=== PATIENT | female | born 1985 | race Caucasian/White ===

== ENCOUNTER 2019-08-28 22:22 | Emergency (ER) | payer SELFPAY ==
[2019-08-28 22:31] VITALS: BP 123/75; PULSE 107; RESP 16; TEMP 38.2; O2SAT 99
[2019-08-28 23:38] VITALS: TEMP 37.7; O2SAT 98
--- NOTE | 2019-08-28 23:54 | ED.URI ---
HPI - URI/Sore Throat General Chief Complaint: Upper Respiratory Infection Stated Complaint: vomiting, fever, cough Time Seen by Provider: 08/28/19 23:54 Source: patient and RN notes reviewed Mode of arrival: ambulatory Limitations: no limitations History of Present Illness HPI Narrative: Pt is a 34 y/o female who presents to the ED with c/o flu-like symptoms starting yesterday. She notes that she has had a fever, generalized weakness, dizziness, headache, nausea, vomiting, diarrhea, body aches, and cough since yesterday. Pt states that her children are also currently sick with similar symptoms. MD elicited complaint: other (Flu-like symptoms) Onset (ago): day(s) (1) Context: sick contacts Associated symptoms: fever, headache, cough, nausea, vomiting, diarrhea and other (body aches; generalized weakness; dizziness) Related Data Allergies Allergy/AdvReac Type Severity Reaction Status Date / Time Penicillins Allergy Unknown Verified 03/08/18 10:16 Review of Systems Review of Systems: All systems reviewed & are unremarkable except as noted in HPI and below Constitutional: Constitutional: Reports body ache(s), Reports fever(s), Reports headache(s) and Reports weakness (generalized) Respiratory: Respiratory: Reports cough Gastrointestinal: Gastrointestinal: Reports diarrhea, Reports nausea and Reports vomiting Neurologic: Reports dizziness PMFSH Past Medical History Medical History Asthma depression Surgical History Surgical History Hx of appendectomy Social History Social History Smoking status: Former smoker Alcohol intake: never Exam Narrative: Exam Narrative: General appearance: Well-developed, well-nourished Skin: Normal color Head: Normocephalic, nontraumatic Eyes: Clear conjunctiva ENT: Oropharynx erythema l, ears normal, rhinorrhea Neck: Supple, nontender Chest and respiratory: Airway patent, no respiratory distress, no accessory muscle use Heart: Regular rate/rhythm Abdomen: Soft, nontender, no organomegaly, quiet bowel sounds Vascular: Normal peripheral pulses, normal capillary refill. Musculoskeletal: Normal range of motion, nontender back Neurologic: Alert and oriented ?3, TAX INTERN is normal as tested, no gross motor deficit Course Course Emergency Course: Unchanged Vital Signs Vital signs: Vital Signs Temperature 38.2 C H 08/28/19 22:31 Pulse Rate 107 H 08/28/19 22:31 Respiratory Rate 16 08/28/19 22:31 Blood Pressure 123/75 08/28/19 22:31 Pulse Oximetry 99 08/28/19 22:31 Temperature 38.2 C H 08/28/19 22:31 Pulse Rate 107 H 08/28/19 22:31 Respiratory Rate 16 08/28/19 22:31 Blood Pressure 123/75 08/28/19 22:31 Pulse Oximetry 99 08/28/19 22:31 MDM - URI/Sore Throat MDM Narrative Medical decision making narrative: Patient influenza test is negative, patient came with 3 of her children and all of them positive for influenza A. I believe the swab test was not accurate. Patient will be treated for influenza. Tamiflu started. Differential Diagnosis Differential diagnosis: Likely upper respiratory infection, viral infection and influenza Lab Data Labs: Influenza A Screen Negative Reference Range: Negative Influenza B Screen Negative Reference Range: Negative Critical Care Time Critical Care Time Critical Care Time: No Discharge Plan Discharge Clinical Impression: Viral infection Patient Disposition: Home, Self-Care Condition: Stable Instructions: Viral Syndrome (ED
[2019-08-29] MEDS: OSELTAMIVIR PHOSPHATE 75 MG CAP PO (00:42)
[2019-08-29] MEDS: ACETAMINOPHEN 325 MG TABLET 650 MG PO (00:42)
[2019-08-29] MEDS: IBUPROFEN 600 MG TABLET PO (00:42)
[2019-08-29 01:12] VITALS: TEMP 37.8
[2019-08-29 01:30] VITALS: BP 124/76; PULSE 98; RESP 18; TEMP 37.7; O2SAT 100
== END 2019-08-29 01:33 | disposition home or self-care (01) ==
PROVIDERS: Emergency Provider Emergency Medicine
DX: B34.9 Viral infection, unspecified (principal); J45.909 Unspecified asthma, uncomplicated
CPT/HCPCS: 87804; 99283; A9270

== ENCOUNTER 2020-04-08 13:38 | Inpatient (IN) | payer MEDICAID, SELFPAY ==
--- NOTE | ~2020-04-08 | CT_ITS ---
EXAMINATION: CT abdomen pelvis w con DATE: 04/10/2020 08:11 INDICATION: Infection. Status post recent lap resection. TECHNIQUE: Computed tomography (CT) of the abdomen and pelvis was performed with 100 cc Omnipaque 350 intravenous contrast. The dose-length product was 1151.19 mGy-cm. Automated exposure control and ite rative reconstruction technique were employed. COMPARISON: None. FINDINGS: Heart size normal. No significant pleural or pericardial effusion. Status post cholecystect kavya. There is diffuse soft tissue swelling and edema. There is fluid collection along the left flank which appears to be encapsulated measuring 7.3 x 5.9 x 2.5 cm. There is a left adnexal cyst measuring 2 cm, likely ovarian. Status post cholecystectomy. The liver, spleen, pancreas, adrenal glands and kidneys are unremarkable . There are retroperitoneal lymph nodes which are likely reactive in the upper abdomen. No free air. No acute osseous abnormality. IMPRESSION: 1. Extensive subcutaneous and soft tissue edema surrounding the abdomen and pelvis with possible absc ess of the left lateral abdominal wall, images 72-90. Alternatively, this fluid could represent posts urgical seroma/hematoma. Reviewed, dictated and finalized at location B. IMPRESSION: 1. Extensive subcutaneous and soft tissue edema surrounding the abdomen and pel vis with possible abscess of the left lateral abdominal wall, images 72-90. Alt ernatively, this fluid could represent postsurgical seroma/hematoma.
--- NOTE | ~2020-04-08 | CT_ITS ---
EXAMINATION: CT brain wo con DATE: 04/08/2020 20:35 INDICATION: Headache. TECHNIQUE: Computed tomography (CT) of the head was performed without intravenous contrast. The mA wa s adjusted according to patient size. Iterative reconstruction technique was employed. The dose-lengt h product was 605.33 mGy-cm. COMPARISON: None FINDINGS: There is no intracranial hemorrhage, acute infarction, or abnormal intracranial mass lesion . The ventricles are normal in size. The paranasal sinuses are clear. The mastoid air cells are kwabena l. IMPRESSION: 1. Normal brain. Reviewed, dictated and finalized at location A. IMPRESSION: 1. Normal brain.
--- NOTE | ~2020-04-08 | XR_ITS ---
EXAMINATION: XR chest 2V EXAM DATE: 04/08/2020 14:53 INDICATION: Fever and headache. TECHNIQUE: Frontal and lateral projections of the chest obtained and reviewed. There is no prior w[place] dy for comparison. FINDINGS: The lungs are clear. There are no pleural effusions. The cardiomediastinal silhouette is within normal limits. There is no pneumothorax suspected. The bones and soft tissues are unremarkab le. There are cholecystectomy clips. IMPRESSION: No acute cardiopulmonary findings. Reviewed, dictated and finalized at location A.
--- NOTE | ~2020-04-08 | CT_ITS ---
EXAMINATION: 1. CT LE RT w con 2. CT LE LT w con DATE: 04/08/2020 20:35 INDICATION: Bilateral thigh pain after liposuction. TECHNIQUE: Computed tomography (CT) of the right thigh and left thigh was performed with 100 mL Omnip aque 350 intravenous contrast. Automated exposure control and iterative reconstruction technique were employed. The dose-length product was 964.80 mGy-cm. COMPARISON: None FINDINGS: RIGHT THIGH CT: There is subcutaneous fat stranding in the pelvis and right thigh. No abscess. There are no pathologically enlarged lymph nodes. The bones are unremarkable. LEFT THIGH CT: There is subcutaneous fat stranding in the pelvis and left thigh. No abscess. There ar e no pathologically enlarged lymph nodes. The bones are unremarkable. IMPRESSION: 1. Subcutaneous fat stranding in the pelvis and thighs, consistent with expected changes of liposucti on. No abscess. Reviewed, dictated and finalized at location A. IMPRESSION: 1. Subcutaneous fat stranding in the pelvis and thighs, consistent with expecte d changes of liposuction. No abscess.
[2020-04-08 14:00] VITALS: BP 129/89; PULSE 122; RESP 20; TEMP 37.5; O2SAT 100
[2020-04-08 14:13] LABS: Basophils Percent Auto 0.2 % (0.2-1.2); Eosinophils Absolute Auto 0.2 K/mm3 (0-0.3); Eosinophils Percent Auto 1.8 % (0-4.4); Hematocrit 23.8 % (37.0-47.0); Hemoglobin 7.6 g/dL (12.0-15.0); Immature Granulocyte Absolute 0.06 K/mm3 (0.00-0.031); Immature Granulocyte Percent A 0.5 % (0-0.5); Lymphocytes Absolute Auto 1.29 K/mm3 (0.9-3.2); Lymphocytes Percent Auto 10.6 % (18.3-44.2); Mean Corpuscular HGB Conc 31.9 g/dl (32-36); Mean Corpuscular Hemoglobin 31.9 pg (26-34); Monocytes Absolute Auto 0.5 K/mm3 (0.1-0.6); Monocytes Percent Auto 3.7 % (2.6-8.5); Neutrophils Absolute Auto 10.2 K/mm3 (1.3-6.7); Neutrophils Percent Auto 83.2 % (45.5-73.1); Platelet Count Result 233 k/mm3 (150-375); Red Blood Count 2.38 M/mm3 (4.2-5.4); Red Cell Distribution Width 17.4 % (11.5-14.5); White Blood Count 12.2 K/mm3 (4.5-10.0)
[2020-04-08 14:25] LABS: Alanine Aminotransferase 45 U/L (4-35); Albumin Level 3.1 g/dL (3.5-5.1); Alkaline Phosphatase 53 U/L (38-126); Anion Gap 5 mmol/L (8-16); Aspartate Amino Transferase 28 U/L (14-36); Bilirubin,Total 0.5 mg/dL (0.2-1.3); Blood Urea Nitrogen 5 mg/dL (7-17); Calcium 8.6 mg/dL (8.4-10.2); Carbon Dioxide 26 mmol/L (22-30); Chloride 104 mmol/L (98-107); Estimated CRCL calculation 110 ml/min; Estimated Glomerular Filt Rate > 60; Glucose 102 mg/dL (65-105); Potassium 3.8 mmol/L (3.4-5.0); Sodium 135 mmol/L (137-145)
[2020-04-08 14:33] LABS: Add Urine Microscopic? NO; Appearance Urine Clear (Clear); Bilirubin Urine Negative (Negative); Blood Urine Negative (Negative); Color Urine Straw (Yellow); Glucose Urine UA Negative (Negative); Ketones Urine Negative (Negative); Leukocyte Esterase Ur Negative LEU/UL (Negative); Nitrate Urine Negative (Negative); Protein Urine Negative (Negative); Specific Grav Ur 1.005 (1.001-1.035); Urobilinogen Urine Negative mg/dL (<2.0)
[2020-04-08 18:30] VITALS: BP 134/78; PULSE 98; RESP 18; TEMP 36.7; O2SAT 100
--- NOTE | 2020-04-08 18:39 | ED.GENADULT ---
HPI - General Adult General Chief complaint: Fever Stated complaint: headache, fever Time Seen by Provider: 04/08/20 18:17 Source: patient History of Present Illness HPI narrative: Patient is a 34 y/o female complaining of generalized headache, neck pain/stiffness and fever for approximately 2 days. She rates her pain as 8/10 and she describes her pain as a pressure in her head. She took Ibuprofen without relief. She has no nausea or vomiting. She has no cough or sore throat. Of note, she had liposuction of her thighs approximately 2 weeks ago in [place]. She still has some thigh pain. Related Data Allergies Allergy/AdvReac Type Severity Reaction Status Date / Time Penicillins Allergy Unknown Verified 03/08/18 10:16 Review of Systems Constitutional: Constitutional: Denies chills, Reports fever(s), Reports headache(s) and Denies weakness Eyes: Eyes: Denies blurry vision ENT: Reports headache(s) and Reports neck pain Cardiovascular: Cardiovascular: Denies chest pain and Denies dyspnea Respiratory: Respiratory: Denies cough and Denies dyspnea Gastrointestinal: Gastrointestinal: Denies abdominal pain, Denies diarrhea, Denies nausea and Denies vomiting Genitourinary: Genitourinary: Denies hematuria and Denies dysuria Musculoskeletal: Musculoskeletal: Denies back pain and Denies neck pain Neurologic: Reports headache(s) and Denies weakness PMF Past Medical History Medical History (Updated 04/09/20 @ 12:24 by Babs Cotter MD) Asthma depression Surgical History Surgical History (Updated 04/08/20 @ 22:38 by Jordin Jimenez MD) History of laparoscopic cholecystectomy Hx of appendectomy Social History Social History Smoking status: Never smoker Alcohol intake: never Substance use: never Substance use type: does not use Gender identity (if verbalized by the patient): Female Spiritual care concerns: No Exam Const: General: no acute distress and well developed Orientation/consciousness: oriented to person, oriented to place, oriented to time and patient oriented x3 HENMT: Head: normocephalic Ears: external ears normal General nose exam: Normal external nose present Eyes: General: appearance normal, both eyes and all related structures Conjunctivae: conjunctivae normal Neck: Neck: normal visual inspection and full ROM Chest: Chest palpation & inspection: normal inspection of the chest and no tenderness Resp: Effort & Inspection: normal respiratory effort Auscultation: clear to auscultation bilaterally Cardio: Rate: regular rate Rhythm: regular rhythm GI: GI Palp: No abdominal tenderness and Yes Soft to palpation Skin: General skin exam: normal color, turgor normal and erythema (both thigh) Wounds: wounds noted (groin, back wound clean and intact) Neuro: General: oriented to person, oriented to place, oriented to time and patient oriented x3 Cognition (Neuro): normal cognition Extrem: General: normal to inspection, full ROM and no pedal edema Psych: Appearance: grossly normal Mental Status: mental status grossly normal Affect: normal affect Course Consultations Consultation #1: Discussed with Dr. Jimenez, who agrees to admit. Date: 04/08/20 Time: 21:16 Vital Signs Vital signs: Vital Signs Temperature 37.5 C 04/08/20 14:00 Pulse Rate 122 H 04/08/20 14:00 Respiratory Rate 20 04/08/20 14:00 Blood Pressure 129/89 04/08/20 14:00 Pulse Oximetry 100 04/08/20 14:00 Temperature 36.9 C 04/09/20 06:00 Pulse Rate 93 04/09/20 06:00 Respiratory Rate 16 04/09/20 06:00 Blood Pressure 104/68 04/09/20 07:56 Pulse Oximetry 100 04/09/20 06:00 Procedures Lumbar Puncture Lumbar Puncture #1: Lumbar Puncture Date: 04/08/20 Lumbar Puncture Time: 19:50 Time Out Performed: Yes Patient Position: left lateral decubitus Skin Prep: Povidone-Iodine 1% Anestheti
[2020-04-08] MEDS: SODIUM CHLORIDE 0.9% IV 1,000 ML 999 ML IV CONT (19:03)
[2020-04-08 20:21] LABS: Glucose CSF 46 mg/dL (40-70); Total Protein CSF 32 mg/dL (12-60)
[2020-04-08 20:42] LABS: Appearance CSF Clear (Clear); CSF source CSF; Color CSF Colorless (Colorless); Lymphocytes CSF 62 % (40-80); Nucleated Cell CSF 3 /uL (0-5); Red Blood Cell CSF 3 (0-2)
[2020-04-08 20:43] LABS: Monocytes CSF 38 % (15-45)
[2020-04-08 21:27] LABS: Lactic Acid Reflex 0.6 mmol/L (0.7-2.1)
[2020-04-08] MEDS: SODIUM CHLORIDE 0.9% IV 1,000 ML 999 ML (21:37)
[2020-04-08] MEDS: KETOROLAC 15 MG/ML VIAL (*BKC) IV PUSH (21:38)
[2020-04-08] MEDS: diphenhydrAMINE HCl INJ 50 MG/ML VIAL 25 MG IV PUSH (21:38)
[2020-04-08] MEDS: METOCLOPRAMIDE HCL INJ 10 MG/2 ML VIAL IV PUSH (21:38)
[2020-04-08 21:45] VITALS: BP 117/62; PULSE 105; RESP 18; O2SAT 99
--- NOTE | 2020-04-08 22:27 | PM.IMHP ---
H&P: HPI History of Present Illness Date/Time: 04/08/20 22:27 Chief complaint: sepsis, headache Narrative: this is a pleasant 34-year-old female with known asthma who presented to the hospital with complaints of generalized headache, malaise, and intermittent fevers for the past 2 days. The patient was known to have undergone liposuction various parts of her body approximately 2 weeks ago in [place]. She had an abdominal drain placed for 9 days before it was removed. Tonight the patient was complaining of neck stiffness and proximal thigh tenderness bilaterally. The patient also reports that she has some small amount of clear drainage coming from wounds under both of her arms. She denies any cough, shortness of breath, sore throat, ear pain, chest pain, dysuria, abdominal pain, hematuria, diarrhea, lower extremity swelling, or rectal bleeding. The patient was found to be septic in the emergency room tonight and did undergo lumbar puncture which was unremarkable. The patient has been started on wide-spectrum antibiotics and blood cultures are pending. Review of Systems Review of Systems: All systems reviewed & are unremarkable except as noted in HPI and below PMFSH Past Medical History Medical History (Updated 04/09/20 @ 06:00 by Jordin Jimenez MD) Asthma depression Surgical History Surgical History (Updated 04/08/20 @ 22:38 by Jordin Jimenez MD) History of laparoscopic cholecystectomy Hx of appendectomy Social History Social History Smoking status: Never smoker Alcohol intake: never Substance use: never Substance use type: does not use Gender identity (if verbalized by the patient): Female Spiritual care concerns: No Meds Home Medications and Allergies Home Medications Medication Instructions Recorded Confirmed Type ipratropium bromide [Atrovent HFA] 2 puff INHALATION QID #12.9 gm 08/29/19 04/09/20 Rx ondansetron HCl [Zofran] 4 mg PO Q6H PRN #10 tablet 08/29/19 04/09/20 Rx oseltamivir [Tamiflu] 75 mg PO Q12H 5 Days #10 cap 08/29/19 04/09/20 Rx Allergies Allergy/AdvReac Type Severity Reaction Status Date / Time Penicillins Allergy Unknown Verified 03/08/18 10:16 Vital Signs Vital Signs - 24 hr 04/08/20 14:00 04/08/20 18:30 04/08/20 21:45 Temperature 37.5 C 36.7 C Pulse Rate 122 H 98 105 H Respiratory Rate 20 18 18 Blood Pressure 129/89 134/78 117/62 Pulse Oximetry 100 100 99 Exam Const: General: cooperative, no acute distress, alert and awake Nutritional Appearance: well nourished Orientation/consciousness: patient oriented x3 HENMT: Head: normal to inspection General nose exam: Normal external nose present Face and sinus: normal facial exam Mouth: Yes Normal oral and palatal mucosa present and Yes oropharynx normal Eyes: Pupils: Equal, round and reactive pupils present EOM: EOMs intact bilaterally Neck: Neck: supple and no JVD Thyroid: thyroid normal Lymphatic: lymphadenopathy not noted Resp: Effort & Inspection: normal respiratory effort Auscultation: clear to auscultation bilaterally Cardio: Rate: regular rate Rhythm: regular rhythm Heart sounds: no murmurs GI: Inspection: normal to inspection Auscultation: normal bowel sounds Skin: General skin exam: erythema (b/l proximal thighs++ ) Wounds: wounds noted (pelvic wound from drain+ ) Neuro: General: patient oriented x3 Cranial nerves: Yes CN's II-XII intact bilaterally and Yes Equal, round and reactive pupils present Speech: normal speech Motor exam (neuro): 5/5 motor strength present throughout Sensory Exam: normal sensation Extrem: General: normal to inspection and no edema Psych: Mental Status: mental status grossly normal Affect: normal affect H&P: Results Labs Labs: Short CBC 04/08/20 Range/Units 14:07 WBC 12.2 H (4.5-10.0) K/mm3 Hgb 7.6 L (12.0-15.0) g/dL Hct 23.8 L (37.0-47.0) % Plt
[2020-04-08 22:32] VITALS: BP 132/60; PULSE 68; RESP 14; TEMP 36.7; O2SAT 100
[2020-04-08 22:33] VITALS: BMI 30.7
--- NOTE | 2020-04-08 22:58 | ADMGEN ---
This patient, Shannan Hermosillo, was admitted to 2 Medical Room 241-01. Patient/family oriented to hospital policies and general routines including ID bracelet, bed and alarms, visiting hours, pain management, procedures, bathroom and other care routines, personal items, smoking policy, room service/diet, and visiting hours. Valuables list has been completed. Information on how to activate the Rapid Response Team has been discussed. Patient/Family are encouraged to report perceived risks to care and to ask questions if they do not understand what they are told or what they should do.
[2020-04-08] MEDS: ACETAMINOPHEN 325 MG TABLET 650 MG PO (23:17)
[2020-04-08] MEDS: SODIUM CHLORIDE 0.9% IV 1,000 ML 125 ML IV CONT (23:17)
[2020-04-09] VITALS (10 sets, daily range): BP systolic 98–126; BP diastolic 50–73; PULSE 70–102; RESP 14–16; TEMP 36.6–37.2; O2SAT 100
--- NOTE | 2020-04-09 | ECHO_ITS ---
Patient Info Name: Shannan Hermosillo Age: 34 years : 1985 Gender: Female Ht: 63 in Wt: 173 lbs BSA: 1.90 m2 HR: 90 bpm BP: 104 / 68 mmHg Heart Rhythm: Sinus Rhythm Technical Quality: Good Exam Date: 04/09/2020 2:23 PM Exam Location: [facility] Patient Status: Inpatient Admit Date: 04/08/2020 Staff Ordering Physician: Yi Appiah PA-C Dental Laboratory Technology Teacher: Raymond Vieira RDCS Attending Provider: Yi Appiah PA-C Referring Physician: Td CAMPOS; Exam Type: CA echo doppler color flow Study Info Indications R01.1 - Cardiac murmur, unspecified Complete two-dimensional, color flow and Doppler transthoracic echocardiogram is performed. Strain analysis performed. History/Risk Factors Sepsis w/ murmur. Summary 1. Complete two-dimensional, color flow and Doppler transthoracic echocardiogram is performed. 2. Left ventricular chamber size, wall thickness, systolic and diastolic function are normal with no regional wall motion abnormalities with an estimated ejection fraction of 55-60%. Global longitudinal strain is normal at -19%. 3. Thickening of the mitral valve; can not exclude a vegetation. If SBE suspected, I recommend a NILE for further evaluation.. 4. Left atrial chamber dimension is mildly enlarged. 5. Normal sinus rhythm. Left Ventricle Left ventricular chamber dimension is normal. Left ventricular systolic function is normal, estimated at 55-60%. There is no increased left ventricular wall thickness. Left ventricular septal wall motion is normal. The left ventricular diastolic function is normal. Global longitudinal strain is normal at 19 %. Left ventricular chamber size, wall thickness, systolic and diastolic function are normal with no regional wall motion abnormalities with an estimated ejection fraction of 55-60%. Global longitudinal strain is normal at -19%. Right Ventricle Right ventricular chamber dimension is normal. Right ventricular systolic function is normal. Left Atria Left atrial chamber dimension is mildly enlarged. Right Atria Right atrial chamber dimension is normal. Aortic Valve The aortic valve is trileaflet. There is no aortic valve sclerosis. There is no aortic valve stenosis. There is no aortic valve regurgitation. Pulmonic Valve The pulmonic valve is normal. There is no pulmonic valve stenosis. There is no pulmonic regurgitation. Mitral Valve The mitral valve has thickened leaflets. There is no mitral valve stenosis. There is no mitral valve regurgitation. Tricuspid Valve The tricuspid valve leaflets are normal. There is no significant tricuspid valve stenosis. There is trace tricuspid valve regurgitation. No pulmonary hypertension, estimated pulmonary arterial systolic pressure is Empty. Pericardium/Pleural The pericardium appears normal. There is no pericardial effusion. Inferior Vena Cava Normal inferior vena cava with >50% collapse upon inspiration consistent with Empty right atrial pressure, 5 mmHg. Aorta The aortic root size at the sinus of Valsalva is normal. The prox ascending aorta size is normal. Left Ventricular Outflow Tract Name Value Normal LVOT 2D LVOT Diameter 2.0 c
[2020-04-09] MEDS: ACETAMINOPHEN 325 MG TABLET 650 MG PO ×3 (05:07→20:00)
[2020-04-09 05:43] LABS: Anion Gap 2 mmol/L (8-16); Blood Urea Nitrogen 7 mg/dL (7-17); Calcium 7.4 mg/dL (8.4-10.2); Carbon Dioxide 24 mmol/L (22-30); Chloride 112 mmol/L (98-107); Estimated CRCL calculation 114 ml/min; Estimated Glomerular Filt Rate > 60; Glucose 87 mg/dL (65-105); Potassium 3.6 mmol/L (3.4-5.0); Sodium 138 mmol/L (137-145)
[2020-04-09 06:31] LABS: Basophils Percent Auto 0.2 % (0.2-1.2); Eosinophils Absolute Auto 0.4 K/mm3 (0-0.3); Eosinophils Percent Auto 6.4 % (0-4.4); Immature Granulocyte Absolute 0.03 K/mm3 (0.00-0.031); Immature Granulocyte Percent A 0.5 % (0-0.5); Lymphocytes Absolute Auto 1.11 K/mm3 (0.9-3.2); Lymphocytes Percent Auto 18.7 % (18.3-44.2); Mean Corpuscular HGB Conc 31.7 g/dl (32-36); Mean Corpuscular Hemoglobin 32.2 pg (26-34); Mean Corpuscular Volume 101.5 fl (80-100); Mean Platelet Volume 9.7 fl (7.4-10.4); Monocytes Absolute Auto 0.3 K/mm3 (0.1-0.6); Monocytes Percent Auto 5.1 % (2.6-8.5); Neutrophils Absolute Auto 4.1 K/mm3 (1.3-6.7); Neutrophils Percent Auto 69.1 % (45.5-73.1); Platelet Count Result 202 k/mm3 (150-375); Red Blood Count 1.99 M/mm3 (4.2-5.4); Red Cell Distribution Width 17.1 % (11.5-14.5); White Blood Count 5.9 K/mm3 (4.5-10.0)
[2020-04-09 06:36] LABS: Hematocrit 20.2 % (37.0-47.0); Hemoglobin 6.4 g/dL (12.0-15.0)
[2020-04-09] MEDS: ACETAMINOPHEN/ASPIRIN/CAFFEINE 250-250-65 MG TABLET 1 TABLET PO (09:49)
--- NOTE | 2020-04-09 10:50 | PM.IMPN ---
Progress Note: A&P Assessment and Plan (1) Sepsis: Qualifiers: Sepsis type: sepsis due to unspecified organism Sepsis acute organ dysfunction status: without acute organ dysfunction Qualified Code(s): A41.9 - Sepsis, unspecified organism Code(s): A41.9 - Sepsis, unspecified organism Status: Acute Assessment and Plan: ------Source of sepsis is likely from her recent liposuction and may be cellulitis vs. bacteremia from wound infection. the only wound in question is the one on the right lower quadrant /pelvis but does not look overtly infectious. She has had a lot of improvement with IV antibiotics. She says her swelling and erythema has improved although her headache is still there. Her neck has improved. I reviewed the LP which did not seem suspicious for infection. Her lactic acid was normal on admission. Her blood pressure has been soft but doing okay. She has a new murmur which may be audible due to hypovolemia but will do an echo to ensure no septic emboli. She has no stroke-like symptoms but does have symptoms of a migraine which we are treating. The patient is not sure where she received the liposuction at but somewhere in [place] and she is going to try to figure out so we can get records. She says she does not have any follow-up (2) Leukocytosis: Qualifiers: Leukocytosis type: unspecified Qualified Code(s): D72.829 - Elevated white blood cell count, unspecified Code(s): D72.829 - Elevated white blood cell count, unspecified Status: Acute Assessment and Plan: ------ resolved.secondary to sepsis. Monitor CBCd. (3) Normocytic anemia: Code(s): D64.9 - Anemia, unspecified Status: Acute Assessment and Plan: ------ The patient has a history of iron deficiency anemia and takes iron at home. She recently had a blood transfusion. she requires a blood transfusion here but has antibody so we are awaiting blood. She has no chest pain with this. I will draw some anemia labs and ensure she does not have hemolytic anemia due to infection. (4) Asthma: Code(s): J45.909 - Unspecified asthma, uncomplicated Status: Chronic Assessment and Plan: ------- Chronic, no exacerbation on exam. Continue Bronchodilators. (5) Migraine: Code(s): G43.909 - Migraine, unspecified, not intractable, without status migrainosus Status: Acute Assessment and Plan: ----- patient has a history of these and it sounds like her typical migraine. Could be worst from the LP. Will continue Toradol p.r.n. and supportive treatment. She has no neural focal logical deficits, I do not suspect additional pathology at this time. Monitor Additional Plan Time Spent With Patient Time with patient: 25 - 35 minutes Subjective Date/time seen: 04/09/20 10:51 Interval history: Pt is a 34-year-old female who had liposuction at a facility in [place] who presented emergency room for neck stiffness, headache and pain/swelling. Patient was seen today and states she feels much better than when she came in but not back to her baseline.Shes been having drainage to her incision site in her right lower quadrant/pelvis but it is getting better. She continues to have a headache that is not better after excedrin. she says these feels like her typical migraines that may be a bit worse. When she has them, she gets blurry vision which she has now. The pain wraps around her temporal and occipital areas of her skull. She is more sensitive to light and sounds. She does not have any different smelling sensations. When she has them at home she usually takes ibuprofen or Excedrin and they go way. she denies nausea, vomiting , constipation, diarrhea, numbness or tingling anywhere. She has no weakness. She states she has never been told she has a murmur. She says that she is always anemic and she has had blood transfusions in the past. She ta
[2020-04-09] MEDS: KETOROLAC 30 MG/ML VIAL (*BKC) IM (11:03)
[2020-04-09] MEDS: SODIUM CHLORIDE 0.9% IV 1,000 ML 125 ML IV CONT (11:05)
[2020-04-09] MEDS: SODIUM CHLORIDE 0.9% IV 250 ML 30 ML IV CONT (11:11)
[2020-04-09 11:30] LABS: Lactate Dehydrogenase 784 U/L (313-618)
[2020-04-09 11:38] LABS: Transferrin 144 mg/dL (206-381)
[2020-04-09 12:08] LABS: Iron 31 ug/dL (37-170)
[2020-04-09 12:18] LABS: Percent Iron Saturation 14 % (20-50)
[2020-04-09 12:35] LABS: Folic Acid 17.8 ng/mL (2.76->20)
[2020-04-09 12:54] LABS: Immunochemical Fecal Occult Bl Negative (N)
[2020-04-09 12:55] LABS: IFOB Positive Control Positive
[2020-04-09] MEDS: FERROUS SULFATE 324 MG TABLET PO (16:21)
[2020-04-09] MEDS: BISACODYL 5 MG TABLET EC PO (16:21)
[2020-04-09 19:32] LABS: Hematocrit 25.1 % (37.0-47.0)
[2020-04-10] VITALS (9 sets, daily range): BP systolic 109–127; BP diastolic 61–76; PULSE 84–99; RESP 16–22; TEMP 36.8–37.1; O2SAT 99–100
[2020-04-10] MEDS: ACETAMINOPHEN/ASPIRIN/CAFFEINE 250-250-65 MG TABLET 1 TABLET PO ×2 (00:20→09:00)
--- NOTE | 2020-04-10 01:11 | PC.NURSE ---
Patients right hip is hard and warm to the touch with redness. Patient refused marking around the area.
[2020-04-10] MEDS: SODIUM CHLORIDE 0.9% IV 1,000 ML 125 ML IV CONT ×2 (01:26→12:09)
[2020-04-10 05:36] LABS: Basophils Percent Auto 0.7 % (0.2-1.2); Eosinophils Absolute Auto 0.6 K/mm3 (0-0.3); Eosinophils Percent Auto 10.6 % (0-4.4); Hematocrit 23.2 % (37.0-47.0); Hemoglobin 7.2 g/dL (12.0-15.0); Immature Granulocyte Absolute 0.03 K/mm3 (0.00-0.031); Immature Granulocyte Percent A 0.5 % (0-0.5); Lymphocytes Percent Auto 29.3 % (18.3-44.2); Mean Corpuscular Hemoglobin 28.7 pg (26-34); Mean Corpuscular Volume 92.4 fl (80-100); Mean Platelet Volume 9.4 fl (7.4-10.4); Monocytes Absolute Auto 0.3 K/mm3 (0.1-0.6); Monocytes Percent Auto 5.3 % (2.6-8.5); Neutrophils Absolute Auto 2.9 K/mm3 (1.3-6.7); Neutrophils Percent Auto 53.6 % (45.5-73.1); Platelet Count Result 243 k/mm3 (150-375); Red Blood Count 2.51 M/mm3 (4.2-5.4); Red Cell Distribution Width 23.6 % (11.5-14.5); White Blood Count 5.5 K/mm3 (4.5-10.0)
[2020-04-10 05:57] LABS: Alanine Aminotransferase 31 U/L (4-35); Albumin Level 2.6 g/dL (3.5-5.1); Alkaline Phosphatase 43 U/L (38-126); Anion Gap 2 mmol/L (8-16); Aspartate Amino Transferase 25 U/L (14-36); Bilirubin,Total 0.2 mg/dL (0.2-1.3); Blood Urea Nitrogen 2 mg/dL (7-17); Calcium 7.7 mg/dL (8.4-10.2); Carbon Dioxide 24 mmol/L (22-30); Chloride 111 mmol/L (98-107); Estimated CRCL calculation 134 ml/min; Estimated Glomerular Filt Rate > 60; Glucose 90 mg/dL (65-105); Potassium 3.5 mmol/L (3.4-5.0); Sodium 137 mmol/L (137-145)
[2020-04-10] MEDS: KETOROLAC 30 MG/ML VIAL (*BKC) IM (06:15)
[2020-04-10] MEDS: FERROUS SULFATE 324 MG TABLET PO ×2 (09:00→17:19)
--- NOTE | 2020-04-10 13:56 | PM.IMPN ---
Progress Note: A&P Assessment and Plan (1) Sepsis: Qualifiers: Sepsis type: sepsis due to unspecified organism Sepsis acute organ dysfunction status: without acute organ dysfunction Qualified Code(s): A41.9 - Sepsis, unspecified organism Code(s): A41.9 - Sepsis, unspecified organism Status: Acute Assessment and Plan: ------Source of sepsis is likely from her recent liposuction and may be cellulitis vs. bacteremia from wound infection. the only wound in question is the one on the right lower quadrant /pelvis but does not look overtly infectious. Wound Care has seen her and put in the recommendations and we sent some fluid off for culture. She also has a possible abscess in the left subcutaneous tissue which I talked to plastic surgery about who is going to talk to the radiologist. Could be a seroma/hematoma/abscess. The patient feels much better today with IV antibiotics and blood. Her head and neck pain has improved. I reviewed the LP which did not seem suspicious for infection. Her lactic acid was normal on admission. Her blood pressure has been soft but doing okay. She has a new murmur which may be audible due to hypovolemia but cannot rule out vegetation. She has no stroke-like symptoms but does have symptoms of a migraine which has improved. The patient was more on his with me today and told me she actually had her liposuction and the [place]. Records are not available (2) Leukocytosis: Qualifiers: Leukocytosis type: unspecified Qualified Code(s): D72.829 - Elevated white blood cell count, unspecified Code(s): D72.829 - Elevated white blood cell count, unspecified Status: Acute Assessment and Plan: ------ resolved.secondary to sepsis. Monitor CBCd. (3) Normocytic anemia: Code(s): D64.9 - Anemia, unspecified Status: Acute Assessment and Plan: ------ The patient has a history of iron deficiency anemia and takes iron at home. She recently had a blood transfusion. she requires a blood transfusion here but has antibody. Hemoglobin 7.2 again today, will transfuse 1 more unit. She has no chest pain with this. (4) Asthma: Code(s): J45.909 - Unspecified asthma, uncomplicated Status: Chronic Assessment and Plan: ------- Chronic, no exacerbation on exam. Continue Bronchodilators. (5) Migraine: Code(s): G43.909 - Migraine, unspecified, not intractable, without status migrainosus Status: Acute Assessment and Plan: -----improved. Patient has a history of these and it sounds like her typical migraine. Could be worse from the LP. Will continue Toradol p.r.n. and supportive treatment. She has no neural focal logical deficits, I do not suspect additional pathology at this time. Monitor (6) Newly recognized murmur: Code(s): R01.1 - Cardiac murmur, unspecified Status: Acute Assessment and Plan: -----slight murmur heard yesterday and an echo was done which showed a thickened mitral valve. Because of the patient's recent surgery and infection, cannot rule out vegetation but also could be due to hypovolemia causing the murmur to be more audible. Patient states she has never had a murmur in the past. Her blood cultures are negative so far and she has been afebrile. Will ask Cardiology their opinion. Additional Plan Subjective Date/time seen: 04/10/20 13:56 Interval history: Pt is a 34-year-old female who had liposuction at a facility in the [facility] who presented emergency room for neck stiffness, headache and pain/swelling. Patient was seen today and is doing much better than before. She says that her headache has improved and she is eating and drinking fine. She denies cp, sob, fevers, chills, nausea, vomiting, diarrhea or constipation. Exam Narrative: Exam Narrative: General: Well developed well nourished patient in NAD HEENT: normocephalic N
[2020-04-10] MEDS: SILVERGEL (ELTA) 45 ML 1 APPLIC TOPICAL (17:18)
[2020-04-10] MEDS: SODIUM CHLORIDE 0.9% IV 250 ML 30 ML IV CONT (17:19)
[2020-04-10 17:34] LABS: Vancomycin Trough 6.6 ug/mL (10.0-20.0)
--- NOTE | 2020-04-10 18:10 | WPDCN ---
Assessment and Plan Assessment and plan (1) Sepsis: Qualifiers: Sepsis type: sepsis due to unspecified organism Sepsis acute organ dysfunction status: without acute organ dysfunction Qualified Code(s): A41.9 - Sepsis, unspecified organism Code(s): A41.9 - Sepsis, unspecified organism Status: Acute Assessment and Plan: Patient was admitted with a sepsis type picture. Cultures are negative so far. She has improved with antibiotics. (2) Abnormal echocardiogram: Code(s): R93.1 - Abnormal findings on diagnostic imaging of heart and coronary circulation Status: Acute Assessment and Plan: Echocardiograms showed some thickening of the mitral valve, questionable vegetation versus normal variant. I recommend a transesophageal echo tomorrow. Review test procedure with the patient and dangers of undiagnosed SBE. Patient desires to proceed. (3) Newly recognized murmur: Code(s): R01.1 - Cardiac murmur, unspecified Status: Acute Assessment and Plan: Murmur not as prominent now, perhaps it was latter because she was tachycardic and hyperdynamic. No significant valve regurgitation or stenosis was found by echo. HPI Data of Consult Date/Time: 04/10/20 18:10 Requesting Physician: Yi Appiah PA-C Primary Care Provider: [facility] ASSISTANT PHYSICIAN Consult Narrative Narrative: Date of service: 04/10/2020 Shannan Hermosillo is a 34 year old female Whom I was asked to see at the request of the hospitalist for an abnormal echo, possible vegetation on the mitral valve, and my advice and opinion regarding proceeding with a transesophageal echo, in consultation. Ms. Hermosillo Was admitted a couple days ago with a low-grade temperature of a 100.5? at home, tachycardia, myalgias and headache. She was thought to be septic and has been started on antibiotics. It was originally thought that 1 of her recent liposuction sites might be infected although cultures are negative including blood cultures. She is feeling much better now. She has remained afebrile. However, she had a prominent heart murmur, and her echocardiogram shows some thickening of the mitral valve and vegetation cannot be excluded. No other heart disease. No trouble swallowing, no esophageal issues. Patient is sexually active but does not think she is . Urine hCG was negative on admission. Review of Systems Constitutional: Constitutional: Reports body ache(s) and Reports fatigue Eyes: Eyes: Reports no additional eye complaints ENT: Denies nasal congestion Cardiovascular: Cardiovascular: Denies chest pain, Reports pedal edema, Denies lightheadedness and Reports palpitations Respiratory: Respiratory: Denies chest congestion, Denies dyspnea and Denies dyspnea on exertion Gastrointestinal: Gastrointestinal: Denies abdominal pain Genitourinary: Genitourinary: Denies dysuria and Denies flank pain Musculoskeletal: Musculoskeletal: Reports neck pain Integumentary/Breasts: Skin/Breast: Reports rash ( Rash over anterior thighs) Neurologic: Reports headache(s) Psychiatric: Psychiatric: Reports no additional psychiatric complaints PMFSH Past Medical History Medical History Asthma depression Surgical History Surgical History History of laparoscopic cholecystectomy Hx of appendectomy Family History Family History Mother Acute myocardial infarction Social History Social History (Updated 04/10/20 @ 18:14 by Halle Candelario MD) Social History: 5 children Smoking status: Never smoker Alcohol intake:
[2020-04-10] MEDS: KETOROLAC 30 MG/ML VIAL (*BKC) IV PUSH (22:01)
[2020-04-11] VITALS (15 sets, daily range): BP systolic 112–143; BP diastolic 62–95; PULSE 76–101; RESP 10–24; TEMP 36.4–36.7; O2SAT 95–100
[2020-04-11] MEDS: SODIUM CHLORIDE 0.9% IV 1,000 ML 125 ML IV CONT (03:20)
[2020-04-11 05:44] LABS: Hematocrit 28.3 % (37.0-47.0); Hemoglobin 8.8 g/dL (12.0-15.0); Mean Corpuscular HGB Conc 31.1 g/dl (32-36); Mean Corpuscular Hemoglobin 28.7 pg (26-34); Mean Corpuscular Volume 92.2 fl (80-100); Mean Platelet Volume 9.3 fl (7.4-10.4); Platelet Count Result 284 k/mm3 (150-375); Red Blood Count 3.07 M/mm3 (4.2-5.4); Red Cell Distribution Width 21.2 % (11.5-14.5)
[2020-04-11 05:55] LABS: Anion Gap 3 mmol/L (8-16); Blood Urea Nitrogen 4 mg/dL (7-17); Calcium 7.9 mg/dL (8.4-10.2); Carbon Dioxide 25 mmol/L (22-30); Chloride 110 mmol/L (98-107); Estimated CRCL calculation 134 ml/min; Estimated Glomerular Filt Rate > 60; Glucose 90 mg/dL (65-105); Potassium 3.7 mmol/L (3.4-5.0); Sodium 138 mmol/L (137-145)
[2020-04-11] MEDS: KETOROLAC 30 MG/ML VIAL (*BKC) IV PUSH ×2 (06:21→13:02)
[2020-04-11] MEDS: ACETAMINOPHEN/ASPIRIN/CAFFEINE 250-250-65 MG TABLET 1 TABLET PO (08:25)
[2020-04-11] MEDS: FERROUS SULFATE 324 MG TABLET PO ×2 (08:26→16:52)
--- NOTE | 2020-04-11 10:04 | WPDHPUPDATE1 ---
History and Physical Update Update Date/Time: 04/11/20 10:04 History and Physical has been reviewed, including an updated exam of the patient. There are NO changes in the patient's condition. Risks, benefits, and alternatives have been discussed and questions answered. Patient agrees to proceed with procedure.
--- NOTE | 2020-04-11 10:04 | WPDMODSED ---
Moderate Sedation Note-Pt Data Patient Data Diagnosis: Sepsis, abnormal echo, rule out SBE Present Complaint: as above Procedure to be performed/Plan: conscious sedation Transesophageal echo Allergies Allergy/AdvReac Type Severity Reaction Status Date / Time Penicillins Allergy Unknown Verified 03/08/18 10:16 Home Medications Medication Instructions Recorded Confirmed Type ipratropium bromide [Atrovent HFA] 2 puff INHALATION QID #12.9 gm 08/29/19 04/09/20 Rx ondansetron HCl [Zofran] 4 mg PO Q6H PRN #10 tablet 08/29/19 04/09/20 Rx oseltamivir [Tamiflu] 75 mg PO Q12H 5 Days #10 cap 08/29/19 04/09/20 Rx Current Medications: Active Medications Acetaminophen (Tylenol Tablet) 650 mg PO Q4H PRN PRN Reason: Mild Pain (1-3) or Fever Last Admin: 04/09/20 20:00 Dose: 650 mg Documented by: Acetaminophen/Aspirin/Caffeine (Pain Reliever Plus Tablet) 1 tablet PO Q6H PRN PRN Reason: Headache Last Admin: 04/11/20 08:25 Dose: 1 tablet Documented by: Albuterol (Albuterol Sulf Neb 2.5mg/0.5ml) 5 mg INHALATION Q6HRT PRN PRN Reason: Shortness Of Breath Ferrous Sulfate (Ferrous Sulfate) 324 mg PO BIDWM [facility] Last Admin: 04/11/20 08:26 Dose: 324 mg Documented by: Sodium Chloride (Normal Saline Iv) 1,000 mls @ 125 mls/hr IV CONT .Q8H [facility] Last Admin: 04/11/20 03:20 Dose: 125 mls/hr Documented by: Ceftriaxone Sodium/Dextrose (Rocephin 1 Gm/D5w 50 Ml) 1 gm in 50 mls @ 100 mls/hr IVPB Q24H [facility] Last Infusion: 04/10/20 21:31 Dose: Infused Documented by: Vancomycin HCl (Vancomycin 1,500 Mg/D5w 500 Ml) 1,500 mg in 500 mls @ 333.333 mls/hr IVPB Q12H [facility] Last Admin: 04/11/20 06:15 Dose: 100 mls/hr Documented by: Ketorolac Tromethamine (Toradol Inj) 30 mg IV PUSH Q6H PRN PRN Reason: Pain Rated 4-6 Last Admin: 04/11/20 06:21 Dose: 30 mg Documented by: Silver Nitrate (Silvergel) 1 applic TOPICAL DAILY [facility] Last Admin: 04/10/20 17:18 Dose: 1 applic Documented by: Sedation/Anesthesia: No previous sedation/anesthesia problems (including family history). [facility] Past Medical History Medical History Asthma depression Surgical History Surgical History History of laparoscopic cholecystectomy Hx of appendectomy Family History Family History Mother Acute myocardial infarction Social History Social History (Updated 04/10/20 @ 18:14 by Halle Candelario MD) Social History: 5 children Smoking status: Never smoker Alcohol intake: never Substance use: never Substance use type: does not use Gender identity (if verbalized by the patient): Female Spiritual care concerns: No Mod Sed Physical Exam Physical Exam Pre Procedural Exam: Normal: Appearance, Eyes, Ears, Nose, Neck, Throat, Airway, Lungs, Heart Size, Heart Rate, Heart Rhythm, Neuro Exam, Abdomen, Liver, Extremities and Skin Hours since solid foods: 12 Hours since liquid intake: 12 Internal Medicine - PN: Obj Da Vital Signs Vital Signs: Vital Signs - 24 hr 04/10/20 14:00 04/10/20 17:24 04/10/20 17:45 Temperature 98.3 F 98.8 F 98.6 F Pulse Rate 90 84 89 Respiratory Rate 16 Blood Pressure 119/76 123/76 116/72 Pulse Oximetry 100 100 100 04/10/20 18:00 04/10/20 18:46 04/10/20 19:46 Temperature 98.6 F 98.2 F 98.2 F Pulse Rate 86 87 99 Respiratory Rate 20 Blood Pressure 116/72 120/68 127/73 Pulse Oximetry 100 100 100 04/11/20 00:00 04/11/20 04:00 04/11/20 09:48 Temperature 97.5 F L 97.7 F 98.1 F Pulse Rate 101 H 99 83 Respiratory Rate 18 18 17 Blood Pressure 112/70 120/77 128/84 Pulse Oximetry 100 98 99 Intake/Output Intake/Output: Intake & Output 04/08/20 04/09/20 04/10/20 04/11/20 23:59 23:59 23:59 23:59 Intake Total 2100 4258 4806 Output Total 600 4350 1999 Balance 2099 5712 545 -1999 Meds/Results Medicat
--- NOTE | 2020-04-11 10:38 | P.PCNTEE_ITS ---
NILE TransEsophageal Echocardiogram Date of procedure: 04/11/20 Procedure Type: Conscious sedation transesophageal echo Diagnosis: Sepsis, abnormal echo with thickening of the mitral valve rule out SBE Indications: as above Image Quality: good Findings: Conscious sedation: Assessment: The patient has no history of anesthesia problems. The patient's oropharynx is clear. The patient was deemed to be a good candidate for conscious sedation. The patient had continuous hemodynamic and oximetric monitoring during the procedure. Start time: 10 10 Completion time: 1031 Total conscious sedation time: 21 minutes Medications Used: Versed 5 mg, fentanyl 125 mcg IV push Trained observer: Herlinda Cintron Outcome: The patient tolerated the procedure well with no complications. Procedure: After informed consent the patient had Hurricaine spray the hypopharynx. The patient had conscious sedation as described above. The transesophageal echo probe was introduced in the esophagus without difficulty. Imaging was obtained in multiplane views. Agitated saline was injected to evalu ate for intracardiac shunting. The patient tolerated the procedure well with no complications. Findings: The left atrium was normal. There is no thrombus present in the left atrium or left atrial appendage. The atrial septum appeared intact. Mitral valve had some slight Thickening andprolapse of the posterior leaflet but no vegetations were present. The left ventricle had had normal size and thickness with good contractility of all segments. The ejection fraction is estimated to be: 65%. The aortic root and valve were normal. The ascending aorta, aortic arch and descending thoracic aorta were normal. The right atrium, tricuspid valve, right ventricle, pulmonic valve and pulmonic artery were all normal. There is no pericardial effusion. When agitated saline was injected intrave nously there was no evidence of intracardiac shunting. Colorflow Doppler Findings: Trivial tricuspid regurgitation. Conclusions: Normal left ventricular systolic function. EF 65% No vegetations present.
[2020-04-11] MEDS: SILVERGEL (ELTA) 45 ML 1 APPLIC TOPICAL (11:45)
--- NOTE | 2020-04-11 12:18 | PC.NURSE ---
Return from NILE per bed at 1135.
--- NOTE | 2020-04-11 16:15 | PM.DS ---
DS: Admitting Diagnosis Admitting Diagnosis Admitting Diagnosis: sepsis, headache DS: Discharge Diagnosis Discharge Diagnosis (1) Sepsis: Qualifiers: Sepsis acute organ dysfunction status: without acute organ dysfunction Sepsis type: sepsis due to unspecified organism Qualified Code(s): A41.9 - Sepsis, unspecified organism Code(s): A41.9 - Sepsis, unspecified organism Status: Acute Assessment and Plan: ------Source of sepsis is likely from her recent liposuction causing cellulitis. the only wound in question is the one on the right lower quadrant /pelvis but does not look overtly infectious and wound cx was negative. Wound Care recommends iodoform packing and she was educated how to do this. Ct showed possible abscess in the left subcutaneous tissue which is not seen on exam and pt has no complaints in that area. Could be a seroma/hematoma or less likely abscess. Pt improved with IV antibiotics. Her head and neck pain has improved. I reviewed the LP which did not seem suspicious for infection. Her lactic acid was normal on admission. She had a new murmur which was likely audible due to hypovolemia. NILE ruled out vegitation. She has no stroke-like symptoms but does have symptoms of a migraine which has improved. Patient instructed not to undergo out of country procedures in the future. Records are not available (2) Leukocytosis: Qualifiers: Leukocytosis type: unspecified Qualified Code(s): D72.829 - Elevated white blood cell count, unspecified Code(s): D72.829 - Elevated white blood cell count, unspecified Status: Acute Assessment and Plan: ------ resolved. secondary to sepsis. Monitor CBCd. (3) Normocytic anemia: Code(s): D64.9 - Anemia, unspecified Status: Acute Assessment and Plan: ------ The patient has a history of iron deficiency anemia and takes iron at home. H and H better 8.8 at discharge but she did require 2 units of blood while hospitalized. (4) Asthma: Code(s): J45.909 - Unspecified asthma, uncomplicated Status: Chronic Assessment and Plan: ------- Chronic, no exacerbation on exam. Continue Bronchodilators. (5) Migraine: Code(s): G43.909 - Migraine, unspecified, not intractable, without status migrainosus Status: Acute Assessment and Plan: -----improved. Patient has a history of these and it sounds like her typical migraine. Could be worse from the LP. She has no neural focal logical deficits, I do not suspect additional pathology at this time. (6) Newly recognized murmur: Code(s): R01.1 - Cardiac murmur, unspecified Status: Acute Assessment and Plan: -----slight murmur heard yesterday and an echo was done which showed a thickened mitral valve. NILE negative for vegitation. She did have mild thickening and prolapse. (7) Cellulitis: Code(s): L03.90 - Cellulitis, unspecified Status: Acute DS: Summary Hospital Course Reason for hospitalization: Sepsis, cellulitis Hospital Course: Patient is a 34-year-old female who presented emergency room for headache, fevers and neck stiffness after having liposuction in the [place] 2 weeks prior (originally she told us it was in [place]). She had an LP in the emergency room which did not show any infection or abnormalities. She is admitted to the hospitalist service and started on broad-spectrum antibiotics and improved. She did require 2 units of blood likely acute on chronic since she had surgery. She suffers from iron deficiency anemia and takes iron at home. Her blood and wounds were cultured which were negative but did have erythema around the wounds likely cellulitis. The patient's headaches improved with treatment. She had a new murmur on exam and a possible thickening of her valve on TTE so a NILE was done which was negative for vegetation. Please see above for further d
[2020-04-11 20:45] LABS: Herpes Simplex Type 1 DNA PCR Not Detected (Not Detected); Herpes Simplex Type 2 DNA PCR Not Detected (Not Detected)
[2020-04-13 05:40] LABS: Haptoglobin 157 mg/dL (43-212)
--- NOTE | 2020-04-16 13:50 | PC.NURSE ---
Blood cx are negative.
== END 2020-04-11 16:55 | disposition home or self-care (01) | DRG 720 ==
LOC: ANHED 21:26 → ANH2MED 21:56
PROVIDERS: Internal Medicine Cardiovascular Disease; Physician Assistant; Admitting Provider Family Medicine; Emergency Provider Emergency Medicine; Visit Provider Internal Medicine
PROC: B24BZZ4 Ultrasonography of Heart with Aorta, Transesophageal (ICD-10-PCS; CPT 93312; principal; 2020-04-11 10:00)
DX: A41.9 Sepsis, unspecified organism (principal); L03.90 Cellulitis, unspecified; J45.909 Unspecified asthma, uncomplicated; D50.9 Iron deficiency anemia, unspecified; G43.909 Migraine, unspecified, not intractable, without status migrainosus; E86.1 Hypovolemia; R01.1 Cardiac murmur, unspecified; Z79.899 Other long term (current) drug therapy; Z98.890 Other specified postprocedural states; Z88.0 Allergy status to penicillin
CPT/HCPCS: 36415; 36430; 62270; 70450; 71046; 73701; 74177; 80048; 80053; 80076; 80202; 81003; 81025; 82274; 82607; 82728; 82746; 82945; 83010; 83540; 83550; 83605; 83615; 84157; 84443; 84466; 85014; 85018; 85025; 85027; 86850; 86880; 86900; 86901; 86902; 86922; 87040; 87070; 87205; 87529; 88108; 89051; 93306; 93312; 93320; 93325; 96361; 96365; 96366; 96367; 96372; 96374; 96375; 99285; A9270; G0378; G0379; J0696; J1200; J1885; J2250; J2765; J3010; J3370; J7030; J7040; J7050; P9016; Q9967

== ENCOUNTER 2020-12-11 18:40 | Emergency (ER) | payer OTHER, SELFPAY ==
[2020-12-11 18:48] VITALS: BP 116/72; PULSE 92; RESP 20; TEMP 36.6; O2SAT 100
--- NOTE | 2020-12-11 18:55 | ED.URI ---
HPI - URI/Sore Throat General Chief Complaint: Upper Respiratory Infection Stated Complaint: congestion Time Seen by Provider: 12/11/20 18:50 Source: patient, RN notes reviewed and old records reviewed History of Present Illness HPI Narrative: 35-year-old female who presents to [facility] with complaints of 3 day history of acute frontal headache, sinus congestion and drainage, sore throat, ear fullness with chest tightness and cough. Patient does have history of asthma and has been using her inhaler and has taken some Tylenol for discomfort. Patient has not had COVID or received immunizations. Patient denies any one else at home ill at this time. Patient has wheezing noted to lung melendez on ascultation with no acute dyspnea noted at rest, has no tachypnea or accessory muscle use noted with breathing, Patient denies any known fevers, chills sweats or myalgia. MD elicited complaint: cough, sore throat, rhinorrhea, nasal congestion and sinus pain Pertinent past history: asthma Onset (ago): day(s) (3) Consistency: constant and progressively worsening Able to tolerate fluids by mouth: Yes Associated symptoms: headache, rhinorrhea, nasal congestion, sore throat, cough, shortness of breath and other (ears feel clogged) Treatments prior to arrival: acetaminophen and other (inhaler) Related Data Allergies Allergy/AdvReac Type Severity Reaction Status Date / Time Penicillins Allergy Unknown Rash Verified 12/11/20 19:07 Review of Systems Review of Systems: Narrative: CONSTITUTIONAL: Denies fever, chills, or sweats. EYES: Denies visual changes, redness, or discharge. ENT: Positive rhinorrhea, congestion, sore throat, no otalgia states feel clogged. CARDIOVASCULAR: Denies chest pain states some chest tightness with cough and deep breathing, denies palpitations, or edema. RESPIRATORY:positive dry cough, exertional dyspnea. GASTROINTESTINAL: Denies abdominal pain, nausea, vomiting, or diarrhea. GENITOURINARY: Denies dysuria or hematuria. SKIN: Denies rash or itching. MUSCULOSKELETAL: Denies back pain, joint pain, or myalgia. NEUROLOGIC:Positive headache,no numbness, or weakness. PSYCHIATRIC: Denies anxiety or depression. All systems reviewed & are unremarkable except as noted in HPI and below PMFSH Past Medical History Medical History (Updated 12/14/20 @ 14:36 by Elida Agarwal NP) Asthma depression Surgical History Surgical History History of laparoscopic cholecystectomy Hx of appendectomy Family History Family History (Updated 12/14/20 @ 14:28 by Elida Agarwal NP) Mother Acute myocardial infarction Hypertension Asthma Sibling Diabetes mellitus Hypertension Asthma Social History Social History Social History: 5 children Smoking status: Never smoker Alcohol intake: never Substance use: never Substance use type: does not use Gender identity (if verbalized by the patient): Female Spiritual care concerns: No Comments At time of signature, agree with nursing past medical, surgical, social and family history. There is no relevant family history pertinent to the presenting complaint Exam Narrative: Exam Narrative: GENERAL: Ill-appearing, well-nourished, and in no acute distress. HEAD: Normocephalic, atraumatic. EYES: PERRLA and EOMI. ENT: Nares red and swolen with clear rhinorrhea no epistaxis. Mucous membranes moist.TM's normal both ears with good light reflex, throat red with no lesions or exudates,tonsils with some enlargement uvula midline, post nasal drainage present NECK: Supple.no lymphadenopathy CHEST: some inspiratory wheezing noted on auscultation. No respiratory distress.SAO2 100% on room air HEART: Regular rate and rhythm. No murmur heard. Normal peripheral pulses. ABDOMEN: Soft, nontender, nondistended, normal active bowel sounds. EXTREMITIES: Normal range of motion. No e
[2020-12-13 19:23] LABS: SARS-CoV-2 RNA PCR Negative
== END 2020-12-11 19:42 | disposition home or self-care (01) ==
PROVIDERS: Emergency Provider Registered Nurse
DX: J40 Bronchitis, not specified as acute or chronic (principal); J01.10 Acute frontal sinusitis, unspecified; Z20.822 Contact with and (suspected) exposure to COVID-19; J45.909 Unspecified asthma, uncomplicated
CPT/HCPCS: 87081; 87426; 87804; 87880; 99213; C9803; G0463; U0003; U0005

== ENCOUNTER 2021-05-12 16:57 | Emergency (ER) | payer OTHER, SELFPAY ==
[2021-05-12 17:05] VITALS: BP 105/72; PULSE 80; RESP 16; TEMP 36.6; O2SAT 100
[2021-05-12 17:06] VITALS: BP 105/72; PULSE 80; RESP 16; TEMP 36.6; O2SAT 100
--- NOTE | 2021-05-12 17:06 | ED.ABDPAIN ---
HPI - Abdominal Pain General Chief Complaint: Headache Stated Complaint: Headache,Stomach Pain Time Seen by Provider: 05/12/21 17:06 Source: patient and RN notes reviewed Mode of arrival: ambulatory Limitations: no limitations History of Present Illness HPI narrative: 35-year-old female presents presents to the [facility] with multiple complaints. Patient states she has had abdominal pain, nausea, vomiting and diarrhea for the last week. Complains of a sore throat and congestion in her chest. Complains of one of the worst headaches of her life very similar to when she was admitted to [facility] March 2020. MD elicited complaint: abdominal pain Related Data Allergies Allergy/AdvReac Type Severity Reaction Status Date / Time Penicillins Allergy Unknown Rash Verified 05/12/21 18:07 Review of Systems Review of Systems: All systems reviewed & are unremarkable except as noted in HPI and below Constitutional: Constitutional: Denies chills and Denies fever(s) Eyes: Eyes: Reports no additional eye complaints and Denies change in vision ENT: Reports as per HPI and Reports sore throat Cardiovascular: Cardiovascular: Reports no additional cardiovascular complaints and Denies chest pain Respiratory: Respiratory: Reports no additional respiratory complaints and Reports chest congestion Gastrointestinal: Gastrointestinal: Reports as per HPI, Reports abdominal pain, Reports diarrhea, Reports nausea and Reports vomiting Musculoskeletal: Musculoskeletal: Reports no additional musculoskeletal complaints Integumentary/Breasts: Skin/Breast: Reports system reviewed and no additional complaints, except as docu Neurologic: Reports system reviewed and no additional complaints, except as documented Psychiatric: Psychiatric: Reports no additional psychiatric complaints Allergic/Immunologic: Allergic/Immunologic: Reports no additional allergic/immunologic complaints [facility] Past Medical History Medical History (Updated 05/12/21 @ 17:20 by Ghazala Tovar) Asthma depression Surgical History Surgical History History of laparoscopic cholecystectomy Hx of appendectomy Family History Family History Mother Acute myocardial infarction Hypertension Asthma Sibling Diabetes mellitus Hypertension Asthma Social History Social History Social History: 5 children Smoking status: Never smoker Alcohol intake: never Substance use: never Substance use type: does not use Gender identity (if verbalized by the patient): Female Spiritual care concerns: No Comments At the time of my signature, I reviewed and agree with the nursing past medical, surgical, social, and family history. There is no relevant family history pertinent to the patient complaint. Exam Const: General: no acute distress, alert and ill appearing acutely Nutritional Appearance: well nourished Orientation/consciousness: patient oriented x3 HENMT: Head: normal to inspection Ears: external ears normal, TM's normal bilaterally and EAC's normal Eyes: Conjunctivae: conjunctivae normal Pupils: Equal, round and reactive pupils present Neck: Neck: normal visual inspection, no lymphadenopathy and no meningeal signs Chest: Chest palpation & inspection: normal inspection of the chest Resp: Effort & Inspection: normal respiratory effort and no use of accessory muscles Auscultation: clear to auscultation bilaterally, no crackles, no rales, no rhonchi and no wheezes Cardio: Rate: regular rate Rhythm: regular rhythm GI: GI Palp: Yes Soft to palpation and Yes Tenderness to palpation present (GI) (Epigastric, right upper quadrant) Auscultation: Hyperactive bowel sounds present : General: Yes no CVA tenderness Back/Spine/Pelvis: Back: no CVA tenderness Skin: General skin exam: normal colo
--- NOTE | 2021-05-12 17:15 | PC.NURSE ---
instructed pt to wait in the room while [facility] calls over to [facility] to make arrangements for transfer to their er. pt gets up and states naw that's ok, you guys didnt do anything for me anyway so i can just take myself somewhere else , and pt walks out of room, into hallway and then out of the the express care completely, witnessed on camera getting into her vehicle and driving off. pt left after seeing provider.
== END 2021-05-12 17:15 | disposition left against medical advice (07) ==
PROVIDERS: Emergency Provider Nurse Practitioner
DX: R09.89 Other specified symptoms and signs involving the circulatory and respiratory systems (principal); R10.84 Generalized abdominal pain; R11.2 Nausea with vomiting, unspecified; J45.909 Unspecified asthma, uncomplicated
CPT/HCPCS: 99211; G0463

== ENCOUNTER 2021-05-12 17:31 | Emergency (ER) | payer OTHER, SELFPAY ==
--- NOTE | ~2021-05-12 | XR_ITS ---
EXAMINATION: XR chest 2V DATE: 05/12/2021 19:58 INDICATION: Irregular heart rate TECHNIQUE: PA and lateral views of the chest are obtained. COMPARISON: 04/08/2020 FINDINGS: The lungs are free of acute opacities. There is no pleural effusion or pneumothorax. The ca rdiomediastinal silhouette is normal. The visualized bones and soft tissues are unremarkable. Cholecy stectomy clips are noted in the right upper quadrant. IMPRESSION: 1. No acute cardiopulmonary abnormality. Reviewed, dictated and finalized at location A.
[2021-05-12 17:42] VITALS: BP 119/62; PULSE 88; RESP 14; TEMP 37.6; O2SAT 99
[2021-05-12] MEDS: SODIUM CHLORIDE 0.9% IV 1,000 ML 999 ML IV CONT (19:09)
[2021-05-12] MEDS: ONDANSETRON INJ 4 MG/2 ML VIAL IV PUSH (19:09)
[2021-05-12 19:16] LABS: Basophils Absolute Auto 0.1 K/mm3 (0.0-0.1); Basophils Percent Auto 0.7 % (0.2-1.2); Eosinophils Absolute Auto 1.5 K/mm3 (0-0.3); Eosinophils Percent Auto 14.1 % (0-4.4); Hematocrit 40.3 % (37.0-47.0); Hemoglobin 13.5 g/dL (12.0-15.0); Immature Granulocyte Absolute 0.02 K/mm3 (0.00-0.031); Immature Granulocyte Percent A 0.2 % (0-0.5); Lymphocytes Absolute Auto 3.91 K/mm3 (0.9-3.2); Lymphocytes Percent Auto 36.3 % (18.3-44.2); Mean Corpuscular HGB Conc 33.5 g/dl (32-36); Mean Corpuscular Hemoglobin 31.5 pg (26-34); Mean Corpuscular Volume 94.2 fl (80-100); Mean Platelet Volume 9.7 fl (7.4-10.4); Monocytes Absolute Auto 0.5 K/mm3 (0.1-0.6); Monocytes Percent Auto 4.5 % (2.6-8.5); Neutrophils Absolute Auto 4.8 K/mm3 (1.3-6.7); Neutrophils Percent Auto 44.2 % (45.5-73.1); Platelet Count Result 253 k/mm3 (150-375); Red Blood Count 4.28 M/mm3 (4.2-5.4); Red Cell Distribution Width 11.9 % (11.5-14.5); White Blood Count 10.8 K/mm3 (4.5-10.0)
[2021-05-12 19:29] LABS: Alanine Aminotransferase 28 U/L (4-35); Albumin Level 4.9 g/dL (3.5-5.1); Alkaline Phosphatase 53 U/L (38-126); Anion Gap 8 mmol/L (8-16); Aspartate Amino Transferase 27 U/L (14-36); Bilirubin,Total 0.4 mg/dL (0.2-1.3); Blood Urea Nitrogen 11 mg/dL (7-17); Calcium 9.8 mg/dL (8.4-10.2); Carbon Dioxide 29 mmol/L (22-30); Chloride 104 mmol/L (98-107); Estimated CRCL calculation 91 ml/min; Estimated Glomerular Filt Rate > 60; Glucose 102 mg/dL (65-110); Lipase 98 U/L (23-300); Potassium 4.1 mmol/L (3.4-5.0); Sodium 141 mmol/L (137-145)
[2021-05-12 19:40] LABS: Add Urine Microscopic? YES; Appearance Urine Cloudy (Clear); Bilirubin Urine Negative (Negative); Blood Urine 2+ (Negative); Budding Yeast Urine Present /hpf; Color Urine Yellow (Yellow); Glucose Urine UA Negative (Negative); Ketones Urine Negative (Negative); Leukocyte Esterase Ur Negative LEU/UL (Negative); Mucus Urine Rare /lpf; Nitrate Urine Negative (Negative); Protein Urine 1+ mg/dL (Negative); Specific Grav Ur 1.019 (1.001-1.035); Squamous Epithelial Cell Urine Few /hpf (Few); Urobilinogen Urine Negative mg/dL (<2.0); WBC Clumps Urine Present /HPF; WBC Urine 21-30 /hpf
--- NOTE | 2021-05-12 19:43 | ECG_ITS ---
Measurements Intervals [place] Rate: 69 P: 64 GA: 147 QRS: 69 QRSD: 94 T: -4 QT: 399 QTc: 430 Interpretive Statements SINUS RHYTHM WITH SINUS ARRHYTHMIA LOW QRS VOLTAGE IN PRECORDIAL LEADS BORDERLINE T WAVE ABNORMALITY- ANT/INF LEADS BASELINE ARTIFACT- I, II, III, AVL BORDERLINE ECG Electronically Signed On 05-13-2021 6:02:01 CDT by Gurdeep Gomez D.O.
[2021-05-12 19:56] VITALS: BP 120/80; PULSE 69; RESP 16; TEMP 37.2; O2SAT 99
[2021-05-12 20:09] VITALS: BP 107/74; PULSE 61
[2021-05-12 20:14] VITALS: BP 114/76; PULSE 72
[2021-05-12 20:15] VITALS: BP 110/76; PULSE 84
--- NOTE | 2021-05-12 20:48 | ED.GENADULT ---
HPI - General Adult General Chief complaint: Headache Stated complaint: zarco/abd pain Time Seen by Provider: 05/12/21 18:39 Source: patient Mode of arrival: ambulatory Limitations: no limitations History of Present Illness HPI narrative: Patient presents with multiple complaints including headache, nausea, chest congestion. Patient reports that she was exposed to her daughter's father who was Covid positive a few weeks ago. Patient has not received her Covid vaccination. Patient denies any head trauma or abdominal trauma. Patient denies any syncope, changes in mentation. Related Data Allergies Allergy/AdvReac Type Severity Reaction Status Date / Time Penicillins Allergy Unknown Rash Verified 05/12/21 18:07 Review of Systems Review of Systems: CONSTITUTIONAL: Denies fever, chills, or sweats. EYES: Denies visual changes, redness, or discharge. ENT: Denies rhinorrhea, congestion, sore throat, or otalgia. CARDIOVASCULAR: Denies chest pain, palpitations, or edema. RESPIRATORY: Denies cough or dyspnea. GASTROINTESTINAL: Reports nausea, vomiting, denies diarrhea. GENITOURINARY: Denies dysuria or hematuria. SKIN: Denies rash or itching. MUSCULOSKELETAL: Denies back pain, joint pain, or myalgia. NEUROLOGIC: Reports headache, denies numbness, dizziness, or weakness. PSYCHIATRIC: Denies anxiety or depression. [facility] Past Medical History Medical History (Updated 05/12/21 @ 20:55 by Maryanne Bermeo PA-C) Asthma depression Surgical History Surgical History History of laparoscopic cholecystectomy Hx of appendectomy Family History Family History Mother Acute myocardial infarction Hypertension Asthma Sibling Diabetes mellitus Hypertension Asthma Social History Social History Social History: 5 children Smoking status: Never smoker Alcohol intake: never Substance use: never Substance use type: does not use Gender identity (if verbalized by the patient): Female Spiritual care concerns: No Exam Narrative: GENERAL: Well-appearing, well-nourished, and in no acute distress. Nontoxic in appearance. HEAD: Normocephalic, atraumatic. EYES: PERRLA and EOMI. NECK: Supple. No adenopathy or masses. Range of motion intact. No rigidity. CHEST: Clear to auscultation. No respiratory distress. No wheezes rales or rhonchi HEART: Regular rate and rhythm. No murmur heard. Normal peripheral pulses. ABDOMEN: Soft, nontender, nondistended, normal active bowel sounds. EXTREMITIES: Normal range of motion. No edema. SKIN: Warm, dry, no rash. NEURO: No focal deficits. Alert and oriented x3. PSYCH: Normal mood and affect. Course Vital Signs Vital signs: Vital Signs Temperature 99.6 F 05/12/21 17:42 Pulse Rate 88 05/12/21 17:42 Respiratory Rate 14 05/12/21 17:42 Blood Pressure 119/62 05/12/21 17:42 Pulse Oximetry 99 05/12/21 17:42 Temperature 99 F 05/12/21 19:56 Pulse Rate 84 05/12/21 20:15 Respiratory Rate 16 05/12/21 19:56 Blood Pressure 110/76 05/12/21 20:15 Pulse Oximetry 99 05/12/21 19:56 Medical Decision Making [facility] Narrative Medical decision making narrative: Patient urine does not show signs of cystitis but possible STDs. Patient has been given Rocephin, azithromycin and Flagyl. Patient has been instructed to follow-up with her primary care [facility] for STD panel testing. Patient has been instructed to quarantine and wait for her results.Patient instructed to obtain over the counter yeast treatment for vaginal yeast found on UA. Vital Signs Vital Signs: Vital Signs Temperature 99.6 F 05/12/21 17:42 Pulse Rate 88 05/12/21 17:42 Respiratory Rate 14 05/12/21 17:42 Blood Pressure 119/62 05/12/21 17:42 Pulse Oximetry 99 05/12/21 17:42 Temperature 99 F 05/12/21 19:56 Pulse Rate 84
[2021-05-12] MEDS: LIDOCAINE HCL 1% LOCAL INJ 20 ML VIAL (21:55)
[2021-05-12] MEDS: metroNIDAZOLE 250 MG TABLET 2000 MG PO (21:56)
[2021-05-12] MEDS: cefTRIAXone 250 MG VIAL IM (21:56)
[2021-05-12] MEDS: AZITHROMYCIN 250 MG TABLET 1000 MG PO (21:56)
[2021-05-12 22:08] VITALS: BP 130/70; PULSE 77; RESP 18; O2SAT 99
[2021-05-14 19:26] LABS: SARS-CoV-2 RNA PCR Negative
== END 2021-05-12 22:09 | disposition home or self-care (01) ==
PROVIDERS: Physician Assistant; Emergency Provider Emergency Medicine
DX: B34.9 Viral infection, unspecified (principal); R82.90 Unspecified abnormal findings in urine; J45.909 Unspecified asthma, uncomplicated; Z20.822 Contact with and (suspected) exposure to COVID-19
CPT/HCPCS: 36415; 71046; 80053; 81001; 81025; 83690; 85025; 87086; 93005; 96365; 96372; 96375; 99284; A9270; C9803; J0131; J0696; J2405; J7030; U0003; U0005

== ENCOUNTER 2021-06-13 17:28 | Emergency (ER) | payer OTHER, SELFPAY ==
[2021-06-13 17:35] VITALS: BP 117/78; PULSE 101; RESP 16; TEMP 37.3; O2SAT 100
--- NOTE | 2021-06-13 17:35 | ED.URI ---
HPI - URI/Sore Throat General Chief Complaint: Upper Respiratory Infection Stated Complaint: chest congestion/cough Time Seen by Provider: 06/13/21 17:35 Source: patient and RN notes reviewed History of Present Illness HPI Narrative: 36-year-old female presents to the [facility] with complaints of migraine, chest congestion and cough. States has been going on for 2 days. States she is taken ibuprofen with no relief. Denies this being the worst headache of her life. Reports light sensitivity however continues to text on her phone Related Data Home Medications Medication Instructions Recorded Confirmed ergocalciferol (vitamin D2) 1,250 mcg PO DAILY 06/13/21 06/13/21 norethindrone-e.estradiol-iron 1 tablet PO DAILY 06/13/21 06/13/21 [Aurovela Fe 1-20 (28)] Allergies Allergy/AdvReac Type Severity Reaction Status Date / Time Penicillins Allergy Unknown Rash Verified 06/13/21 17:36 Review of Systems Review of Systems: All systems reviewed & are unremarkable except as noted in HPI and below Constitutional: Constitutional: Reports no additional constitutional complaints, Denies chills and Denies fever(s) Eyes: Eyes: Reports no additional eye complaints ENT: Reports as per HPI Cardiovascular: Cardiovascular: Reports no additional cardiovascular complaints and Denies chest pain Respiratory: Respiratory: Reports as per HPI, Reports cough and Denies dyspnea Gastrointestinal: Gastrointestinal: Reports no additional gastrointestinal complaints, Denies abdominal pain, Denies nausea and Denies vomiting Musculoskeletal: Musculoskeletal: Reports no additional musculoskeletal complaints Integumentary/Breasts: Skin/Breast: Reports system reviewed and no additional complaints, except as docu Neurologic: Reports as per HPI and Reports headache(s) Psychiatric: Psychiatric: Reports no additional psychiatric complaints Allergic/Immunologic: Allergic/Immunologic: Reports no additional allergic/immunologic complaints [facility] Past Medical History Medical History (Updated 06/13/21 @ 18:59 by Ghazala Tovar) Asthma Headache Migraine depression Surgical History Surgical History History of laparoscopic cholecystectomy Hx of appendectomy Family History Family History Mother Acute myocardial infarction Hypertension Asthma Sibling Diabetes mellitus Hypertension Asthma Social History Social History Social History: 5 children Smoking status: Never smoker Alcohol intake: never Substance use: never Substance use type: does not use Gender identity (if verbalized by the patient): Female Spiritual care concerns: No Comments At the time of my signature, I reviewed and agree with the nursing past medical, surgical, social, and family history. There is no relevant family history pertinent to the patient complaint. Exam Const: General: healthy appearing, no acute distress and alert Nutritional Appearance: well nourished Orientation/consciousness: patient oriented x3 Limitations: no limitations HENMT: Head: normal to inspection Ears: external ears normal, TM's normal bilaterally and EAC's normal Eyes: Conjunctivae: conjunctivae normal Pupils: Equal, round and reactive pupils present Neck: Neck: normal visual inspection, no lymphadenopathy and no meningeal signs Chest: Chest palpation & inspection: normal inspection of the chest Resp: Effort & Inspection: normal respiratory effort and no use of accessory muscles Auscultation: clear to auscultation bilaterally, no crackles, no rales, no rhonchi and no wheezes Cardio: Rate: regular rate Rhythm: regular rhythm GI: GI Palp: Yes Soft to palpation and No Tenderness to palpation present (GI) : General: Yes no CVA tenderness Back/Spine/Pelvis: Back: no CVA tenderness Skin: Rashes: no ra
== END 2021-06-13 17:53 | disposition home or self-care (01) ==
PROVIDERS: Emergency Provider Nurse Practitioner
DX: J40 Bronchitis, not specified as acute or chronic (principal); G43.909 Migraine, unspecified, not intractable, without status migrainosus; J45.909 Unspecified asthma, uncomplicated; D64.9 Anemia, unspecified
CPT/HCPCS: 99213; G0463

== ENCOUNTER → 2021-07-28 09:40 | Outpatient (CLI) | payer OTHER, SELFPAY ==
[2021-07-29 20:10] LABS: SARS-CoV-2 RNA PCR Negative
== END ==
PROVIDERS: PCP Emergency Medicine; Visit Provider Emergency Medicine
DX: R51.9 Headache, unspecified (principal); Z20.822 Contact with and (suspected) exposure to COVID-19
CPT/HCPCS: 71046; C9803; U0003; U0005

== ENCOUNTER 2021-07-28 10:24 | Outpatient (CLI) | payer OTHER, SELFPAY ==
--- NOTE | ~2021-07-28 | XR_ITS ---
XR chest 2V DATE: 07/28/2021 10:58 INDICATION: Cough, shortness of breath. Covid exposure. TECHNIQUE: PA and lateral views COMPARISON: 05/12/2021 2 view chest FINDINGS: Normal heart size. No hilar or mediastinal enlargement. No pulmonary infiltrate or consolid ation, pleural effusion or pulmonary vascular congestion or pneumothorax. Status post cholecystectomy. Included skeletal structures are unremarkable. IMPRESSION: No active cardiopulmonary disease Reviewed, dictated and finalized at location A. [facility]
== END 2021-07-28 10:25 | disposition home or self-care (01) ==
PROVIDERS: PCP Emergency Medicine; Visit Provider Emergency Medicine
DX: R05.9 Cough, unspecified (principal); R06.02 Shortness of breath; R06.2 Wheezing
CPT/HCPCS: 71046

== ENCOUNTER 2021-07-28 11:26 | Emergency (ER) | payer OTHER, SELFPAY ==
[2021-07-28 11:51] VITALS: BP 144/82; PULSE 84; RESP 18; TEMP 36.3; O2SAT 100
[2021-07-28 13:12] VITALS: BP 116/75; PULSE 80; RESP 18; TEMP 36.4; O2SAT 96
--- NOTE | 2021-07-28 16:15 | PC.NURSE ---
pt stated that she was going to leave and go to different hospital d/t wait time. encourage to return if needed, pt agreeable to this request
== END 2021-07-29 03:59 | disposition left against medical advice (07) ==
PROVIDERS: PCP Emergency Medicine
DX: R51.9 Headache, unspecified (principal)
CPT/HCPCS: 99199

== ENCOUNTER → 2021-08-05 00:59 | Outpatient (CLI) | payer OTHER, SELFPAY ==
[2021-08-05 21:02] LABS: SARS-CoV-2 RNA PCR Negative
== END ==
PROVIDERS: PCP Emergency Medicine; Visit Provider Emergency Medicine
DX: R06.02 Shortness of breath (principal); R05.9 Cough, unspecified; R50.9 Fever, unspecified; Z20.822 Contact with and (suspected) exposure to COVID-19
CPT/HCPCS: C9803; U0003; U0005

== ENCOUNTER 2021-10-21 01:45 | Emergency (ER) | payer OTHER, SELFPAY ==
[2021-10-21 01:48] VITALS: BP 121/71; PULSE 83; RESP 16; TEMP 36.1; O2SAT 100
--- NOTE | 2021-10-21 03:06 | ED.GENADULT ---
HPI - General Adult General Chief complaint: Abdominal Pain Stated complaint: abd pain Time Seen by Provider: 10/21/21 02:43 History of Present Illness HPI narrative: Patient 36-year-old female presents the emergency department with chief complaint of abdominal cramping. Patient reports that she is on her sixth miscarriage 5 other is a term she has been followed by [facility] and has had some cramping is had quantitative hCGs done with the last one being in the low 100s. Patient states that today she started having a little bit more cramping denies bleeding or discharge. Patient states that she was told if her pain worsens she should come to the emergency department for evaluation patient reports she has not had an ultrasound during this . Related Data Home Medications Medication Instructions Recorded Confirmed albuterol sulfate INHALATION 10/21/21 Allergies Allergy/AdvReac Type Severity Reaction Status Date / Time Penicillins Allergy Unknown Rash Verified 10/21/21 02:17 Review of Systems Review of Systems: A 10 system review of systems was completed on the patient and is negative except for what is stated in the HPI. Nursing and ancillary documentation was reviewed. [facility] Past Medical History Medical History Asthma Headache Migraine depression Surgical History Surgical History History of laparoscopic cholecystectomy Hx of appendectomy Family History Family History Mother Acute myocardial infarction Hypertension Asthma Sibling Diabetes mellitus Hypertension Asthma Social History Social History Social History: 5 children Smoking status: Never smoker Alcohol intake: never Substance use: never Substance use type: does not use Gender identity (if verbalized by the patient): Female Spiritual care concerns: No Exam Narrative: GENERAL: Well-appearing, well-nourished, and in no acute distress. HEAD: Normocephalic, atraumatic. EYES: PERRLA and EOMI. ENT: Nares clear, no rhinorrhea or epistaxis. Mucous membranes moist. NECK: Supple. CHEST: Clear to auscultation. No respiratory distress. HEART: Regular rate and rhythm. No murmur heard. Normal peripheral pulses. ABDOMEN: Soft, nontender, nondistended, normal active bowel sounds. EXTREMITIES: Normal range of motion. No edema. SKIN: Warm, dry, no rash. NEURO: No focal deficits. Alert and oriented x3. PSYCH: Normal mood and affect. Course Vital Signs Vital signs: Vital Signs Temperature 36.1 C L 10/21/21 01:48 Pulse Rate 83 10/21/21 01:48 Respiratory Rate 16 10/21/21 01:48 Blood Pressure 121/71 10/21/21 01:48 Pulse Oximetry 100 10/21/21 01:48 Temperature 36.1 C L 10/21/21 01:48 Pulse Rate 83 10/21/21 01:48 Respiratory Rate 16 10/21/21 01:48 Blood Pressure 121/71 10/21/21 01:48 Pulse Oximetry 100 10/21/21 01:48 Medical Decision Making Vital Signs Vital Signs: Vital Signs Temperature 36.1 C L 10/21/21 01:48 Pulse Rate 83 10/21/21 01:48 Respiratory Rate 16 10/21/21 01:48 Blood Pressure 121/71 10/21/21 01:48 Pulse Oximetry 100 10/21/21 01:48 Temperature 36.1 C L 10/21/21 01:48 Pulse Rate 83 10/21/21 01:48 Respiratory Rate 16 10/21/21 01:48 Blood Pressure 121/71 10/21/21 01:48 Pulse Oximetry 100 10/21/21 01:48 Lab Data Result diagrams: 10/21/21 02:34 10/21/21 02:34 Labs: Lab Results 10/21/21 10/21/21 10/21/21 Range/Units 02:34 02:34 02:34 WBC 11.1 H (4.5-10.0) K/mm3 RBC 4.10 L (4.2-5.4) M/mm3 Hgb 12.6 (12.0-15.0) g/dL Hct 37.8 (37.0-47.0) % MCV 92.2 (80-100) fl MCH 30.7 (26-34) pg MCHC 33.3 (32-36) g/
[2021-10-21 03:07] LABS: Basophils Absolute Auto 0.1 K/mm3 (0.0-0.1); Basophils Percent Auto 0.7 % (0.2-1.2); Eosinophils Absolute Auto 1.1 K/mm3 (0-0.3); Eosinophils Percent Auto 9.6 % (0-4.4); Hematocrit 37.8 % (37.0-47.0); Hemoglobin 12.6 g/dL (12.0-15.0); Immature Granulocyte Absolute 0.03 K/mm3 (0.00-0.031); Immature Granulocyte Percent A 0.3 % (0-0.5); Lymphocytes Absolute Auto 3.78 K/mm3 (0.9-3.2); Lymphocytes Percent Auto 34.1 % (18.3-44.2); Mean Corpuscular HGB Conc 33.3 g/dl (32-36); Mean Corpuscular Hemoglobin 30.7 pg (26-34); Mean Corpuscular Volume 92.2 fl (80-100); Mean Platelet Volume 9.8 fl (7.4-10.4); Monocytes Absolute Auto 0.7 K/mm3 (0.1-0.6); Monocytes Percent Auto 6.4 % (2.6-8.5); Neutrophils Absolute Auto 5.4 K/mm3 (1.3-6.7); Neutrophils Percent Auto 48.9 % (45.5-73.1); Platelet Count Result 203 k/mm3 (150-375); Red Cell Distribution Width 13.2 % (11.5-14.5); White Blood Count 11.1 K/mm3 (4.5-10.0)
[2021-10-21 03:13] LABS: Add Urine Microscopic? YES; Appearance Urine Cloudy (Clear); Bilirubin Urine Negative (Negative); Blood Urine Negative (Negative); Color Urine Yellow (Yellow); Glucose Urine UA Negative (Negative); Ketones Urine Negative (Negative); Leukocyte Esterase Ur Negative LEU/UL (Negative); Nitrate Urine Negative (Negative); Protein Urine Negative (Negative); RBC Urine 0-2 /hpf (0-2); Specific Grav Ur 1.015 (1.001-1.035); Squamous Epithelial Cell Urine Rare /hpf (Few); Urobilinogen Urine Negative mg/dL (<2.0); WBC Urine 0-3 /hpf
[2021-10-21 03:21] LABS: Alanine Aminotransferase 23 U/L (4-35); Albumin Level 4.3 g/dL (3.5-5.1); Alkaline Phosphatase 65 U/L (38-126); Anion Gap 8 mmol/L (8-16); Aspartate Amino Transferase 27 U/L (14-36); Bilirubin,Total 0.2 mg/dL (0.2-1.3); Blood Urea Nitrogen 13 mg/dL (7-17); Calcium 9.3 mg/dL (8.4-10.2); Carbon Dioxide 26 mmol/L (22-30); Chloride 103 mmol/L (98-107); Estimated CRCL calculation 93 ml/min; Estimated Glomerular Filt Rate > 60; Glucose 72 mg/dL (65-110); Lipase 89 U/L (23-300); Potassium 3.6 mmol/L (3.4-5.0); Sodium 137 mmol/L (137-145)
[2021-10-21 04:50] VITALS: BP 109/59; PULSE 79; RESP 16; O2SAT 100
== END 2021-10-21 04:52 | disposition home or self-care (01) ==
PROVIDERS: Physician Assistant; Emergency Provider Emergency Medicine; PCP Emergency Medicine
DX: O26.891 Other specified pregnancy related conditions, first trimester (principal); R10.9 Unspecified abdominal pain; O99.511 Diseases of the respiratory system complicating pregnancy, first trimester; J45.909 Unspecified asthma, uncomplicated; Z3A.01 Less than 8 weeks gestation of pregnancy
CPT/HCPCS: 36415; 80053; 81001; 81025; 83690; 84702; 85025; 99283

== ENCOUNTER 2021-10-29 14:57 | Outpatient (RCR) | payer OTHER, SELFPAY ==
[2021-10-13 17:23] LABS: Beta HCG Quantitative 62.89 mIU/ML
[2021-10-15 17:42] LABS: Beta HCG Quantitative 112.14 mIU/ML
[2021-10-27 12:59] LABS: Beta HCG Quantitative 514.09 mIU/ML
[2021-10-29 15:55] LABS: Beta HCG Quantitative 548.56 mIU/ML
== END 2022-01-11 23:59 | disposition home or self-care (01) ==
LOC: ANHLAB 14:57
PROVIDERS: PCP Emergency Medicine; Visit Provider Obstetrics & Gynecology
DX: O20.0 Threatened abortion (principal); Z3A.00 Weeks of gestation of pregnancy not specified
CPT/HCPCS: 36415; 84702

== ENCOUNTER 2021-11-01 09:42 | Outpatient (CLI) | payer OTHER, SELFPAY | END 2021-11-01 09:43 | disposition home or self-care (01) | PROVIDERS: PCP Emergency Medicine; Visit Provider Obstetrics & Gynecology | DX: O36.80X0 Pregnancy with inconclusive fetal viability, not applicable or unspecified (principal); Z3A.00 Weeks of gestation of pregnancy not specified | CPT/HCPCS: 36415; 84702 ==

== ENCOUNTER 2021-12-30 15:36 | Emergency (ER) | payer OTHER, SELFPAY ==
[2021-12-30 15:44] VITALS: BP 107/74; PULSE 101; RESP 16; TEMP 37.3; O2SAT 98
--- NOTE | 2021-12-30 15:59 | ED.URI ---
HPI - URI/Sore Throat General Chief Complaint: Upper Respiratory Infection Stated Complaint: Sore Throat,Ear Pain Time Seen by Provider: 12/30/21 16:13 Source: patient and RN notes reviewed Mode of arrival: ambulatory Limitations: no limitations History of Present Illness HPI Narrative: 36-year-old female presents to the [facility] with complaints of cough. States she has chest wall pain with coughing that started last week. Patient states that her sore throat, ear pain, headache, red irritated right eye started today. Any chest pain or abdominal pain. Unsure fevers. No nausea vomiting or diarrhea. Related Data Allergies Allergy/AdvReac Type Severity Reaction Status Date / Time Penicillins Allergy Unknown Rash Verified 12/30/21 15:49 Review of Systems Review of Systems: All systems reviewed & are unremarkable except as noted in HPI and below Constitutional: Constitutional: Reports no additional constitutional complaints, Denies chills and Denies fever(s) Eyes: Eyes: Reports no additional eye complaints ENT: Reports as per HPI, Reports nasal congestion and Reports sore throat Cardiovascular: Cardiovascular: Reports no additional cardiovascular complaints Respiratory: Respiratory: Reports as per HPI, Reports chest congestion, Reports cough, Denies dyspnea and Denies wheezing Gastrointestinal: Gastrointestinal: Reports no additional gastrointestinal complaints Musculoskeletal: Musculoskeletal: Reports no additional musculoskeletal complaints Integumentary/Breasts: Skin/Breast: Reports system reviewed and no additional complaints, except as docu Neurologic: Reports system reviewed and no additional complaints, except as documented Psychiatric: Psychiatric: Reports no additional psychiatric complaints Allergic/Immunologic: Allergic/Immunologic: Reports no additional allergic/immunologic complaints [facility] Past Medical History Medical History Asthma Headache Migraine depression Surgical History Surgical History History of laparoscopic cholecystectomy Hx of appendectomy Family History Family History Mother Acute myocardial infarction Hypertension Asthma Sibling Diabetes mellitus Hypertension Asthma Social History Social History Social History: 5 children Smoking status: Never smoker Alcohol intake: never Substance use: never Substance use type: does not use Gender identity (if verbalized by the patient): Female Spiritual care concerns: No Comments At the time of my signature, I reviewed and agree with the nursing past medical, surgical, social, and family history. There is no relevant family history pertinent to the patient complaint. Exam Const: General: no acute distress, alert and ill appearing acutely (mild) Nutritional Appearance: well nourished Orientation/consciousness: patient oriented x3 Limitations: no limitations HENMT: Head: normal to inspection Ears: external ears normal Eyes: General: appearance normal, both eyes and all related structures Conjunctivae: conjunctival abnormality right conjunctival injection and discharge Pupils: Equal, round and reactive pupils present Neck: Neck: normal visual inspection, no lymphadenopathy and no meningeal signs Chest: Chest palpation & inspection: normal inspection of the chest Resp: Effort & Inspection: normal respiratory effort and no use of accessory muscles Auscultation: clear to auscultation bilaterally, no crackles, no rales, no rhonchi and no wheezes Cardio: Rate: regular rate Rhythm: regular rhythm Back/Spine/Pelvis: Cervical Spine: normal cervical lordosis Thoracic/Lumbar Spine: thoracic and lumbar spine normal to inspection Skin: General skin exam: normal color Rashes: no rashes Wou
[2021-12-30 21:04] LABS: SARS-CoV-2 RNA PCR Negative
== END 2021-12-30 16:38 | disposition home or self-care (01) ==
PROVIDERS: Emergency Provider Nurse Practitioner
DX: H10.31 Unspecified acute conjunctivitis, right eye (principal); B34.9 Viral infection, unspecified; Z20.822 Contact with and (suspected) exposure to COVID-19; J45.909 Unspecified asthma, uncomplicated
CPT/HCPCS: 87081; 87804; 87880; 99213; C9803; G0463; U0003; U0005

== ENCOUNTER 2022-01-31 21:44 | Emergency (ER) | payer OTHER, SELFPAY ==
[2022-01-31 21:47] VITALS: BP 113/90; PULSE 96; RESP 17; TEMP 36.4; O2SAT 100
[2022-01-31 22:02] LABS: Basophils Absolute Auto 0.1 K/mm3 (0.0-0.1); Basophils Percent Auto 0.9 % (0.2-1.2); Eosinophils Absolute Auto 1.3 K/mm3 (0-0.3); Eosinophils Percent Auto 14.3 % (0-4.4); Hematocrit 38.1 % (37.0-47.0); Hemoglobin 12.6 g/dL (12.0-15.0); Immature Granulocyte Absolute 0.02 K/mm3 (0.00-0.031); Immature Granulocyte Percent A 0.2 % (0-0.5); Lymphocytes Absolute Auto 3.18 K/mm3 (0.9-3.2); Mean Corpuscular HGB Conc 33.1 g/dl (32-36); Mean Corpuscular Hemoglobin 30.2 pg (26-34); Mean Corpuscular Volume 91.4 fl (80-100); Mean Platelet Volume 9.3 fl (7.4-10.4); Monocytes Absolute Auto 0.5 K/mm3 (0.1-0.6); Monocytes Percent Auto 5.6 % (2.6-8.5); Neutrophils Absolute Auto 4.2 K/mm3 (1.3-6.7); Platelet Count Result 219 k/mm3 (150-375); Red Blood Count 4.17 M/mm3 (4.2-5.4); Red Cell Distribution Width 12.2 % (11.5-14.5); White Blood Count 9.3 K/mm3 (4.5-10.0)
[2022-01-31 22:09] LABS: Add Urine Microscopic? YES; Appearance Urine Slightly Cloudy (Clear); Bilirubin Urine Negative (Negative); Blood Urine Negative (Negative); Color Urine Yellow (Yellow); Glucose Urine UA Negative (Negative); Ketones Urine Negative (Negative); Leukocyte Esterase Ur 2+ LEU/UL (Negative); Nitrate Urine Negative (Negative); Protein Urine Negative (Negative); Specific Grav Ur 1.015 (1.001-1.035); Urobilinogen Urine 0.2 mg/dL (<2.0); pH Urine 7.5 (5.0-9.0)
[2022-01-31 22:16] LABS: Budding Yeast Urine Present /hpf; Mucus Urine Rare /lpf; Squamous Epithelial Cell Urine Few /hpf (Few); WBC Urine 16-20 /hpf
[2022-01-31 22:22] LABS: Alanine Aminotransferase 29 U/L (6-35); Albumin Level 4.3 g/dL (3.5-5.1); Alkaline Phosphatase 55 U/L (38-126); Anion Gap 5 mmol/L (8-16); Aspartate Amino Transferase 26 U/L (14-36); Bilirubin,Total 0.2 mg/dL (0.2-1.3); Blood Urea Nitrogen 12 mg/dL (7-17); Carbon Dioxide 27 mmol/L (22-30); Chloride 108 mmol/L (98-107); Estimated CRCL calculation 75 ml/min; Estimated Glomerular Filt Rate > 60; Glucose 99 mg/dL (65-110); Lipase 84 U/L (23-300); Potassium 3.8 mmol/L (3.4-5.0); Sodium 140 mmol/L (137-145)
[2022-01-31 23:23] LABS: Pregnancy On Board Control Positive; Urine Pregnancy Test Negative
--- NOTE | 2022-01-31 23:23 | ED.ABDPAIN ---
HPI - Abdominal Pain General Chief Complaint: Abdominal Pain Stated Complaint: abd pain/ headache Time Seen by Provider: 01/31/22 23:15 Source: patient History of Present Illness HPI narrative: Patient presents with multiple complaints. Reports has had a headache for approximately 1 month is not previously been evaluated for it. Her headache is constant, getting worse she is attempted [id number] medications without relief she came to ER for further evaluation. She denies any change in vision focal numbness or weakness trauma recent spinal instrumentation or history of IV drug use. He also reports lower abdominal pain and vaginal discharge over the past week getting worse. Her pain is primarily in her left lower quadrant. Pain is constant, achy, no clear aggravating or alleviating factors. Reports a lot of itching in her area. She does report a history of gonorrhea including many years ago. Patient also reports she douches periodically Related Data Allergies Allergy/AdvReac Type Severity Reaction Status Date / Time Penicillins Allergy Unknown Rash Verified 01/31/22 21:50 metoclopramide [From Reglan] AdvReac Hallucinati Verified 01/31/22 21:50 ng Review of Systems Review of Systems: CONSTITUTIONAL: Denies fever, chills, or sweats. EYES: Denies visual changes, redness, or discharge. ENT: Denies rhinorrhea, congestion, sore throat, or otalgia. CARDIOVASCULAR: Denies chest pain, palpitations, or edema. RESPIRATORY: Denies cough or dyspnea. GASTROINTESTINAL: Denies nausea, vomiting, or diarrhea. GENITOURINARY: Denies dysuria or hematuria. SKIN: Denies rash or itching. MUSCULOSKELETAL: Denies back pain, joint pain, or myalgia. NEUROLOGIC: Denies numbness, dizziness, or weakness. PSYCHIATRIC: Denies anxiety or depression. All systems reviewed & are unremarkable except as noted in HPI and below PMFSH Past Medical History Medical History Asthma Headache Migraine depression Surgical History Surgical History History of laparoscopic cholecystectomy Hx of appendectomy Family History Family History Mother Acute myocardial infarction Hypertension Asthma Sibling Diabetes mellitus Hypertension Asthma Social History Social History Social History: 5 children Smoking status: Never smoker Alcohol intake: never Substance use: never Substance use type: does not use Gender identity (if verbalized by the patient): Female Spiritual care concerns: No Exam Narrative: GENERAL: Well-appearing, well-nourished, and in no acute distress. HEAD: Normocephalic, atraumatic. EYES: PERRLA and EOMI. ENT: Nares clear, no rhinorrhea or epistaxis. Mucous membranes moist. NECK: Supple. No masses. No JVD CHEST: Clear to auscultation. No respiratory distress. No wheezes rales or rhonchi HEART: Regular rate and rhythm. No murmur heard. Normal peripheral pulses. 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 No edema. SKIN: Warm, dry, no rash. NEURO: No focal deficits. Alert and oriented x3. PSYCH: Normal mood and affect. Course Reevaluation(s) Reevaluation #1: Patient resting comfortably results and plan reviewed with patient. Patient is comfortable outpatient plan. I did discuss initially imaging with the patient however after pelvic exam and discharge patient prefers antibiotics as the scan will take a protracted omi
[2022-01-31 23:59] VITALS: BP 111/73; PULSE 89; RESP 20; O2SAT 99
[2022-02-01] MEDS: SODIUM CHLORIDE 0.9% IV 1,000 ML 999 ML IV CONT
[2022-02-01] MEDS: KETOROLAC 15 MG/ML VIAL (*BKC) IV PUSH
[2022-02-01 01:09] VITALS: BP 119/77; PULSE 65; RESP 18; TEMP 36.7; O2SAT 100
== END 2022-02-01 01:10 | disposition home or self-care (01) ==
PROVIDERS: Emergency Provider Emergency Medicine
DX: N76.0 Acute vaginitis (principal); J45.909 Unspecified asthma, uncomplicated
CPT/HCPCS: 36415; 80053; 81001; 81025; 83690; 85025; 87070; 87077; 87086; 87088; 87491; 87591; 87808; 96365; 96374; 99284; J0131; J1885; J7030

== ENCOUNTER 2022-05-23 01:28 | Emergency (ER) | payer OTHER, SELFPAY ==
[2022-05-23 01:29] VITALS: BP 141/104; PULSE 73; RESP 18; TEMP 36.8; O2SAT 100
--- NOTE | 2022-05-23 02:02 | ED.GENADULT ---
HPI - General Adult General Chief complaint: Upper Respiratory Infection Stated complaint: covid +, body aches, zarco, dizzy, ears operator helper Seen by Provider: 05/23/22 01:53 History of Present Illness HPI narrative: Patient a 36-year-old female who presents the emergency department with chief complaint of upper respiratory infection. The patient reports she has had symptoms for about a week and has been coughing had pressure in her ears body aches and nausea. The patient reports that she did a home COVID test today that was positive and her daughter tested positive for COVID. Related Data Allergies Allergy/AdvReac Type Severity Reaction Status Date / Time Penicillins Allergy Unknown Rash Verified 05/23/22 01:32 metoclopramide [From Reglan] AdvReac Hallucinati Verified 05/23/22 01:32 ng Review of Systems Review of Systems: A 10 system review of systems was completed on the patient and is negative except for what is stated in the HPI. Nursing and ancillary documentation was reviewed. [facility] Past Medical History Medical History Asthma Headache Migraine depression Surgical History Surgical History History of laparoscopic cholecystectomy Hx of appendectomy Family History Family History Mother Acute myocardial infarction Hypertension Asthma Sibling Diabetes mellitus Hypertension Asthma Social History Social History Social History: 5 children Smoking status: Never smoker Alcohol intake: never Substance use: never Substance use type: does not use Gender identity (if verbalized by the patient): Female Spiritual care concerns: No Exam Narrative: GENERAL: Well-appearing, well-nourished, and in no acute distress. HEAD: Normocephalic, atraumatic. EYES: PERRLA and EOMI. ENT: Nares clear, no rhinorrhea or epistaxis. Mucous membranes moist. NECK: Supple. CHEST: Clear to auscultation. No respiratory distress. HEART: Regular rate and rhythm. No murmur heard. Normal peripheral pulses. ABDOMEN: Soft, nontender, nondistended, normal active bowel sounds. EXTREMITIES: Normal range of motion. No edema. SKIN: Warm, dry, no rash. NEURO: No focal deficits. Alert and oriented x3. PSYCH: Normal mood and affect. Course Course Emergency Course: Patient is past the time. For antiviral medications. Patient will be started on a antitussive medication and inhaler and given a prescription for antiemetics. Vital Signs Vital signs: Vital Signs Temperature 36.8 C 05/23/22 01:29 Pulse Rate 73 05/23/22 01:29 Respiratory Rate 18 05/23/22 01:29 Blood Pressure 141/104 H 05/23/22 01:29 Pulse Oximetry 100 05/23/22 01:29 Oxygen Delivery Room Air 05/23/22 01:29 Temperature 36.8 C 05/23/22 01:29 Pulse Rate 73 05/23/22 01:29 Respiratory Rate 18 05/23/22 01:29 Blood Pressure 141/104 H 05/23/22 01:29 Pulse Oximetry 100 05/23/22 01:29 Oxygen Delivery Room Air 05/23/22 01:29 Medical Decision Making Vital Signs Vital Signs: Vital Signs Temperature 36.8 C 05/23/22 01:29 Pulse Rate 73 05/23/22 01:29 Respiratory Rate 18 05/23/22 01:29 Blood Pressure 141/104 H 05/23/22 01:29 Pulse Oximetry 100 05/23/22 01:29 Oxygen Delivery Room Air 05/23/22 01:29 Temperature 36.8 C 05/23/22 01:29 Pulse Rate 73 05/23/22 01:29 Respiratory Rate 18 05/23/22 01:29 Blood Pressure 141/104 H 05/23/22 01:29 Pulse Oximetry 100 05/23/22 01:29 Oxygen Delivery Room Air 05/23/22 01:29 Discharge Plan Discharge Clinical Impression: COVID-19, Acute upper respiratory infection Patient Disposition: Home, Self-Care Condition: Stable Instructions: Antibiotic Form, COVID-19 (Coronavirus Dise
[2022-05-23] MEDS: ONDANSETRON INJ 4 MG/2 ML VIAL IV PUSH (02:12)
[2022-05-23] MEDS: KETOROLAC 15 MG/ML VIAL (*BKC) IV PUSH (02:12)
[2022-05-23] MEDS: BENZONATATE 100 MG CAPSULE 200 MG PO (02:20)
[2022-05-23] MEDS: ALBUTEROL SULFATE (*SP) INHALER 2 PUFF INHALATION (02:29)
[2022-05-23 02:34] VITALS: BP 127/88; PULSE 80; RESP 16; O2SAT 98
== END 2022-05-23 02:36 | disposition home or self-care (01) ==
PROVIDERS: Emergency Provider Emergency Medicine
DX: U07.1 COVID-19 (principal); J06.9 Acute upper respiratory infection, unspecified; J45.909 Unspecified asthma, uncomplicated
CPT/HCPCS: 96374; 96375; 99284; A9270; J1885; J2405

== ENCOUNTER 2022-06-23 02:35 | Emergency (ER) | payer OTHER, SELFPAY ==
--- NOTE | ~2022-06-23 | CT_ITS ---
EXAMINATION: CT brain wo con DATE: 06/23/2022 03:45 INDICATION: Headache. TECHNIQUE: Computed tomography (CT) of the head was performed without intravenous contrast. The mA wa s adjusted according to patient size. Iterative reconstruction technique was employed. The dose-lengt h product was 605.33 mGy-cm. COMPARISON: Head CT 04/08/2020 FINDINGS: There is no intracranial hemorrhage, acute infarction, or abnormal intracranial mass lesion . The ventricles are normal in size. The orbits are normal. There is mucosal thickening in the parana yonis sinuses. The mastoid air cells are normal. IMPRESSION: 1. Normal brain. Reviewed, dictated and finalized at location A. UP EXAMINER IMPRESSION: 1. Normal brain.
--- NOTE | ~2022-06-23 | XR_ITS ---
EXAMINATION: XR chest 1V portable DATE: 06/23/2022 03:45 INDICATION: Cough. TECHNIQUE: A single frontal view of the chest was obtained. COMPARISON: Chest 2 views 07/28/2021, CT abdomen and pelvis 04/10/2020 FINDINGS: The chest demonstrates clear lungs without pneumonia, pleural effusion, or pneumothorax. Th e heart size is normal. IMPRESSION: 1. No acute cardiopulmonary disease. Reviewed, dictated and finalized at location A. NE MAINTENANCE MECHANIC
[2022-06-23 02:39] VITALS: BP 133/52; PULSE 116; RESP 14; TEMP 37.2; O2SAT 100
--- NOTE | 2022-06-23 03:11 | ECG_ITS ---
Measurements Intervals [place] Rate: 110 P: 50 HI: 142 QRS: 42 QRSD: 88 T: 11 QT: 299 QTc: 405 Interpretive Statements SINUS TACHYCARDIA BORDERLINE R WAVE PROGRESSION, ANTERIOR LEADS BORDERLINE ST-T WAVE ABNORMALITY- ANTEROLAT/INF LEADS ABNORMAL ECG COMPARED TO ECG 05/12/2021 19:51:34 SINUS TACHYCARDIA NOW PRESENT Electronically Signed On 06-23-2022 8:56:21 MATH AND SCIENCES DEPARTMENT CHAIR by Gurdeep Gomez D.O.
[2022-06-23 03:31] VITALS: BP 117/68; PULSE 106; RESP 26; O2SAT 100
--- NOTE | 2022-06-23 03:34 | ED.FEVER ---
HPI - Fever General Chief Complaint: Fever Stated Complaint: bodyaches, fever Time Seen by Provider: 06/23/22 02:56 History of Present Illness HPI Narrative: This is a 37-year-old female past medical history of asthma and migraines, presenting the emergency department complaining of headache, cough and nausea for the past several days. She states she was previously diagnosed with COVID approximately month ago and has had persistent cough since then. She also complains of migraines that are different from her baseline, described as sharp, extending from the head to the neck, intermittently waking her from sleep. Related Data Allergies Allergy/AdvReac Type Severity Reaction Status Date / Time Penicillins Allergy Unknown Rash Verified 06/23/22 03:32 metoclopramide [From Reglan] AdvReac Hallucinati Verified 06/23/22 03:32 ng Review of Systems Constitutional: Constitutional: Reports fatigue and Reports fever(s) Eyes: Eyes: Reports no additional eye complaints ENT: Reports nasal congestion and Reports sore throat Cardiovascular: Cardiovascular: Reports no additional cardiovascular complaints Respiratory: Respiratory: Reports chest congestion and Reports cough Gastrointestinal: Gastrointestinal: Reports no additional gastrointestinal complaints Genitourinary: Genitourinary: Reports no additional female genitourinary complaints Musculoskeletal: Musculoskeletal: Reports myalgias Integumentary/Breasts: Skin/Breast: Reports system reviewed and no additional complaints, except as docu Neurologic: Reports weakness (generalized) Psychiatric: Psychiatric: Reports no additional psychiatric complaints PMFSH Past Medical History Medical History Asthma Headache Migraine depression Surgical History Surgical History History of laparoscopic cholecystectomy Hx of appendectomy Family History Family History Mother Acute myocardial infarction Hypertension Asthma Sibling Diabetes mellitus Hypertension Asthma Social History Social History Social History: 5 children Smoking status: Never smoker Alcohol intake: never Substance use: never Substance use type: does not use Gender identity (if verbalized by the patient): Female Spiritual care concerns: No Course Reevaluation(s) Reevaluation #1: 05:20 - My review of CT head is not concerning for intracranial hemorrhage or mass. Stat rad read is significantly delayed. The patient tested positive for influenza A. Chest x-ray shows diffuse changes consistent with viral pneumonia, though no focal consolidations concerning for bacterial. CBC and chemistries unremarkable. Discussed findings with the patient. Will discharge with Tamiflu and primary care follow-up. Discussed absence of formal CT head read. The patient elects discharge and will be contacted if there are abnormal findings. Discussed return and emergent precautions including signs/symptoms of respiratory distress. The patient voiced understanding and is comfortable with plan. All questions answered to her satisfaction. 05:55 - STATrad CT Head read resulted - no intracranial abnormality. The patient was informed of her results immediately before departure from the ED. Vital Signs Vital signs: Vital Signs Temperature 99.0 F 06/23/22 02:39 Pulse Rate 116 H 06/23/22 02:39 Respiratory Rate 14 06/23/22 02:39 Blood Pressure 133/52 L 06/23/22 02:39 Pulse Oximetry 100 06/23/22 02:39 Oxygen Delivery Room Air 06/23/22 02:39 Temperature 99.0 F 06/23/22 02:39 Pulse Rate 100 06/23/22 06:27 Respiratory Rate 22 H 06/23/22 06:27 Blood Pressure 118/67 06/23/22 06:27 Pulse Oximetry 96 06/23/22 06:27 Oxygen Delivery Room Air
--- NOTE | 2022-06-23 03:38 | PC.NURSE ---
Pt refused IV medications until she finds out what is wrong .
[2022-06-23 04:27] LABS: Basophils Percent Auto 0.8 % (0.2-1.2); Eosinophils Absolute Auto 0.7 K/mm3 (0-0.3); Eosinophils Percent Auto 14.5 % (0-4.4); Hemoglobin 12.2 g/dL (12.0-15.0); Immature Granulocyte Absolute 0.01 K/mm3 (0.00-0.031); Immature Granulocyte Percent A 0.2 % (0-0.5); Lymphocytes Percent Auto 18.4 % (18.3-44.2); Mean Corpuscular HGB Conc 33.9 g/dl (32-36); Mean Corpuscular Hemoglobin 29.9 pg (26-34); Mean Corpuscular Volume 88.2 fl (80-100); Mean Platelet Volume 9.7 fl (7.4-10.4); Monocytes Absolute Auto 0.4 K/mm3 (0.1-0.6); Neutrophils Absolute Auto 2.8 K/mm3 (1.3-6.7); Neutrophils Percent Auto 57.1 % (45.5-73.1); Platelet Count Result 178 k/mm3 (150-375); Red Blood Count 4.08 M/mm3 (4.2-5.4); Red Cell Distribution Width 12.3 % (11.5-14.5); White Blood Count 4.9 K/mm3 (4.5-10.0)
[2022-06-23 04:41] LABS: Alanine Aminotransferase 44 U/L (6-35); Albumin Level 4.2 g/dL (3.5-5.1); Alkaline Phosphatase 59 U/L (38-126); Anion Gap 9 mmol/L (8-16); Aspartate Amino Transferase 34 U/L (14-36); Bilirubin,Total 0.3 mg/dL (0.2-1.3); Blood Urea Nitrogen 12 mg/dL (7-17); Calcium 8.7 mg/dL (8.4-10.2); Carbon Dioxide 22 mmol/L (22-30); Chloride 105 mmol/L (98-107); Estimated CRCL calculation 84 ml/min; Estimated Glomerular Filt Rate > 60; Glucose 90 mg/dL (65-110); Potassium 3.9 mmol/L (3.4-5.0); Sodium 136 mmol/L (137-145)
[2022-06-23] MEDS: diphenhydrAMINE HCl INJ 50 MG/ML VIAL 25 MG IV PUSH (04:42)
[2022-06-23] MEDS: SODIUM CHLORIDE 0.9% IV 1,000 ML 999 ML IV CONT (04:42)
[2022-06-23] MEDS: PROCHLORPERAZINE EDISYLATE 10 MG/2 ML VIAL IV PUSH (04:42)
[2022-06-23 04:50] VITALS: BP 125/76; PULSE 108; RESP 26; O2SAT 100
[2022-06-23 05:07] LABS: Influenza A QL RT-PCR Positive (Negative); Influenza B QL RT-PCR Negative (Negative); SARS-CoV-2 RNA PCR Negative
[2022-06-23 06:27] VITALS: BP 118/67; PULSE 100; RESP 22; O2SAT 96
== END 2022-06-23 06:28 | disposition home or self-care (01) ==
PROVIDERS: Emergency Provider Preventive Medicine Aerospace Medicine
DX: J10.1 Influenza due to other identified influenza virus with other respiratory manifestations (principal); G43.909 Migraine, unspecified, not intractable, without status migrainosus; J45.909 Unspecified asthma, uncomplicated; Z86.16 Personal history of COVID-19; R00.0 Tachycardia, unspecified; R94.31 Abnormal electrocardiogram [ECG] [EKG]
CPT/HCPCS: 36415; 70450; 71045; 80053; 85025; 87502; 93005; 96365; 96375; 99284; J0131; J0780; J1200; J7030; U0003; U0005

== ENCOUNTER 2022-08-16 13:44 | Outpatient (CLI) | payer OTHER, SELFPAY ==
--- NOTE | ~2022-08-16 | XR_ITS ---
EXAM: XR_CERV2-3V_CR DATE: 08/16/2022 14:16 HISTORY: CHRONIC LOW BACK PAIN . COMPARISON: None available. FINDINGS: Craniocervical association and atlantoaxial joint are aligned. No prevertebral soft tissue swelling. Vertebral bodies are aligned. Reversed lordosis centered at C5. Vertebral body heights are maintained. Mild disc space narrowing at C5-6. Minimal facet sclerosis and hypertrophy. IMPRESSION: Reversed lordosis which can occur with positioning or muscle spasm. Mild degenerative dis c disease at C5-6. Minimal multilevel facet arthropathy. Reviewed, dictated and finalized at location K. ALARM OPERATOR IMPRESSION: Reversed lordosis which can occur with positioning or muscle spasm. Mild degenerative disc disease at C5-6. Minimal multilevel facet arthropathy.
--- NOTE | ~2022-08-16 | XR_ITS ---
EXAM: XR lumbar spine 2-3V DATE: 08/16/2022 14:16 HISTORY: CHRONIC LOW BACK PAIN and neck pain . COMPARISON: None available. FINDINGS: Cholecystectomy clips. Pelvic phleboliths. 5 nonrib-bearing lumbar-type vertebral bodies. Hypoplastic ribs at T12. Pedicles intact. Normal vertebral body alignment. Vertebral body heights pre served. Mild disc space narrowing at L2-3 and L4-5. Mild marginal osteophytosis at L2-3. Mild multile [place] facet sclerosis. No fracture or dislocation. IMPRESSION: Mild multilevel degenerative disc disease and facet arthropathy. Reviewed, dictated and finalized at location K. STOS HAZARD ABATEMENT WORKER
--- NOTE | ~2022-08-16 | MR_ITS ---
EXAMINATION: MR brain/brain stem wo con DATE: 08/16/2022 14:46 INDICATION: HEADACHE TECHNIQUE: Magnetic resonance imaging (MRI) of the brain and brainstem was performed without intraven ous contrast. Sequences included sagittal and axial T1-weighted SE, axial diffusion-weighted FS EPI A SSET, axial T2*-weighted GRE, axial T2-weighted FLAIR Propeller, and axial T2-weighted Propeller. Pos tcontrast axial and coronal T1-weighted SE was obtained. Apparent diffusion coefficient (ADC) maps we re created. COMPARISON: CT brain 06/23/2022. FINDINGS: No abnormal restricted diffusion to suggest acute ischemic infarct. No MRI evidence of hemorrhage or extra-axial collection. No suspicious foci of susceptibility to suggest prior intraparenchymal hemorr danica. 6 mm hypointensity in the posterior and left aspect of the pituitary gland. Normal white matter signal. No evidence of advanced or lobar predominant parenchymal volume loss. The basilar cisterns a re patent. Flow voids are preserved. Paranasal sinuses are within normal limits. Globes and orbital c ontents are within normal limits. IMPRESSION: 1. Possible 6 mm pituitary microadenoma, consider dedicated pituitary MRI for further characterizatio n. 2. Otherwise normal MR brain findings. Reviewed, dictated and finalized at location K. N EXPORT ACCOUNT MANAGER IMPRESSION: 1. Possible 6 mm pituitary microadenoma, consider dedicated pituitary MRI for f urther characterization. 2. Otherwise normal MR brain findings.
== END 2022-08-16 13:45 | disposition home or self-care (01) ==
PROVIDERS: PCP Internal Medicine Gastroenterology; Visit Provider Internal Medicine Gastroenterology
DX: R51.9 Headache, unspecified (principal); G47.9 Sleep disorder, unspecified; M54.2 Cervicalgia; R93.0 Abnormal findings on diagnostic imaging of skull and head, not elsewhere classified; M51.36 Other intervertebral disc degeneration, lumbar region
CPT/HCPCS: 70551; 72040; 72100

== ENCOUNTER 2023-03-02 15:05 | Outpatient (CLI) | payer OTHER, SELFPAY ==
--- NOTE | ~2023-03-02 | MR_ITS ---
EXAMINATION: MR pituitary wo/w con DATE: 03/02/2023 16:47 INDICATION: Pituitary mass. TECHNIQUE: Magnetic resonance imaging (MRI) of the brain and brainstem was performed without and with 16 mL MultiHance intravenous contrast. COMPARISON: Brain MRI 08/16/2022, head CT 06/23/2022 FINDINGS: The pituitary is normal in size with height of 4 mm and concave superior margin. There is n o intracranial hemorrhage, acute infarction, or abnormal intracranial mass lesion. The ventricles are normal in size. The orbits are normal. There is mild mucosal thickening in the paranasal sinuses. Th e mastoid air cells are normal. IMPRESSION: 1. Normal pituitary. Normal brain. Reviewed, dictated and finalized at location A.
== END 2023-03-02 15:06 | disposition home or self-care (01) ==
PROVIDERS: PCP Internal Medicine Gastroenterology; Visit Provider Internal Medicine Gastroenterology
DX: R93.0 Abnormal findings on diagnostic imaging of skull and head, not elsewhere classified (principal)
CPT/HCPCS: 70553; A9577

== ENCOUNTER 2023-05-29 19:54 | Emergency (ER) | payer OTHER, SELFPAY ==
--- NOTE | 2023-05-29 19:57 | ED.URI ---
HPI - URI/Sore Throat General Chief Complaint: Upper Respiratory Infection Stated Complaint: left ear pain,throat pain,headache Time Seen by Provider: 05/29/23 19:57 Source: patient Mode of arrival: ambulatory Limitations: no limitations History of Present Illness HPI Narrative: Shannan is a 38-year-old female patient presenting to the clinic today with complaints of left ear pain, sore throat, and headache x1 day. She reports no known fever or chills. She denies any known exposure to anyone with COVID, flu, or strep. She reports that her children are also sick. MD elicited complaint: sore throat and nasal congestion Related Data Home Medications Medication Instructions Recorded Confirmed albuterol 05/29/23 Allergies Allergy/AdvReac Type Severity Reaction Status Date / Time Penicillins Allergy Unknown Rash Verified 05/29/23 19:56 metoclopramide [From Reglan] AdvReac Hallucinati Verified 05/29/23 19:56 ng Review of Systems Review of Systems: Pertinent positives per HPI. Patient denies any fever, chills, rash, visual changes, dizziness, cough, shortness of breath, chest pain, palpitations, nausea, vomiting, diarrhea, constipation, abdominal pain, or any urinary issues. [facility] Past Medical History Medical History Asthma Headache Migraine depression Surgical History Surgical History History of laparoscopic cholecystectomy Hx of appendectomy Family History Family History Mother Acute myocardial infarction Hypertension Asthma Sibling Diabetes mellitus Hypertension Asthma Social History Social History Social History: 5 children Smoking status: Never smoker Alcohol intake: never Substance use: never Substance use type: does not use Gender identity (if verbalized by the patient): Female Spiritual care concerns: No Comments At the time of my signature, I reviewed and agree with the nursing past medical, surgical, social, and family history. There is no relevant family history pertinent to the patient complaint. Exam Narrative: General: Well-developed, well nourished, in no apparent distress Head: Normocephalic, atraumatic Eyes: Pupils equally round and reactive to light bilaterally, EOM intact, sclera and conjunctive clear, no discharge, lids normal Ears: TMs intact and clear, ear canals clear, no drainage, grossly hearing normal. Nose: Nares patent, no discharge, no inflammation, no sinus tenderness. Mouth: Oral pharynx without lesions or masses, good dentition, MMM. Neck: Supple, trachea midline, no enlargement of anterior or posterior cervical nodes, no thyroid masses or goiter palpable. Cardio: Regular rate and rhythm, s1 and s2 normal, no murmur appreciated. Resp: Clear to auscultation bilaterally, no rhonchi, rales, wheezing or rubs Course Course Emergency Course: Portions of this record may have been created with voice recognition software. Level of Care: Express Care Visit Vital Signs Vital signs: Vital signs reviewed MDM - URI/Sore Throat MDM Narrative Medical decision making narrative: At the time of visit patient is resting comfortably on exam table. Strep test was obtained and was positive in the clinic today. Prescription for azithromycin was sent to the pharmacy as patient has an allergy to penicillins. Supportive measures were discussed with the patient she voiced understanding discharge instructions and agrees to treatment plan. Differential Diagnosis Differential diagnosis: Likely upper respiratory infection, otitis media, sinusitis, viral infection, bronchitis, influenza, pharyngitis and other (COVID) Discharge Plan Discharge Clinical Impression: Acute streptococcal pharyngitis Radha
[2023-05-29 20:04] VITALS: BP 128/82; PULSE 84; RESP 16; TEMP 37.4; O2SAT 99
[2023-05-29 20:09] VITALS: BP 128/82; PULSE 84; RESP 16; TEMP 37.4; O2SAT 99
== END 2023-05-29 20:29 | disposition home or self-care (01) ==
PROVIDERS: Emergency Provider Nurse Practitioner Family; PCP Internal Medicine Gastroenterology
DX: J02.0 Streptococcal pharyngitis (principal)
CPT/HCPCS: 87880; 99213; G0463

== ENCOUNTER 2024-01-05 11:17 | Outpatient (CLI) | payer OTHER, SELFPAY ==
[2024-01-05 12:01] LABS: Hematocrit 42.1 % (37.0-47.0); Hemoglobin 13.9 g/dL (12.0-15.0); Mean Corpuscular Hemoglobin 29.7 pg (26-34); Mean Platelet Volume 9.8 fl (7.4-10.4); Platelet Count Result 213 k/mm3 (150-375); Red Blood Count 4.68 M/mm3 (4.2-5.4); Red Cell Distribution Width 11.7 % (11.5-14.5); White Blood Count 6.2 K/mm3 (4.5-10.0)
[2024-01-05 12:12] LABS: Alanine Aminotransferase 146 U/L (6-35); Albumin Level 4.5 g/dL (3.5-5.1); Alkaline Phosphatase 70 U/L (38-126); Anion Gap 7 mmol/L (4-12); Aspartate Amino Transferase 88 U/L (14-36); Blood Urea Nitrogen 10 mg/dL (7-17); Calcium 9.2 mg/dL (8.4-10.2); Carbon Dioxide 25 mmol/L (22-30); Chloride 107 mmol/L (98-107); Estimated Glomerular Filt Rate > 60; Glucose 91 mg/dL (65-110); Potassium 4.1 mmol/L (3.4-5.0); Sodium 139 mmol/L (137-145)
[2024-01-05 12:54] LABS: Free T4 Free Thyroxine 1.25 ng/mL (0.78-2.19)
[2024-01-05 13:41] LABS: Chlamydia trachomatis NOT DETECTED (NOT DETECTE); Neisseria gonorrhoeae PCR NOT DETECTED (NOT DETECTE)
[2024-01-05 13:50] LABS: Rapid Plasma Reagin Non-Reactive (NonReactive)
== END 2024-01-05 11:18 | disposition home or self-care (01) ==
LOC: ANHLAB 11:19
PROVIDERS: PCP Internal Medicine Gastroenterology; Visit Provider Emergency Medicine
DX: Z00.00 Encounter for general adult medical examination without abnormal findings (principal); J45.909 Unspecified asthma, uncomplicated; E55.9 Vitamin D deficiency, unspecified; G43.909 Migraine, unspecified, not intractable, without status migrainosus; M54.50 Low back pain, unspecified; F31.9 Bipolar disorder, unspecified; R10.9 Unspecified abdominal pain; F41.9 Anxiety disorder, unspecified
CPT/HCPCS: 36415; 80053; 82306; 84439; 84443; 85027; 86592; 87491; 87591

== ENCOUNTER 2024-02-28 08:11 | Emergency (ER) | payer OTHER, SELFPAY ==
--- NOTE | ~2024-02-28 | XR_ITS ---
EXAMINATION: XR chest 2V DATE: 02/28/2024 08:51 INDICATION: Fever. Right back pain. Cough. TECHNIQUE: Frontal and lateral views of the chest were obtained on 3 radiographs. COMPARISON: Chest single view 06/23/2022 FINDINGS: There is no pneumonia, pleural effusion, or pneumothorax. The heart size is normal. Surgica l clips in the right upper quadrant are likely from cholecystectomy. IMPRESSION: 1. No acute cardiopulmonary disease. Reviewed, dictated and finalized at location A.
[2024-02-28 08:21] VITALS: BP 114/93; PULSE 79; RESP 16; TEMP 36.2; O2SAT 98
[2024-02-28 08:38] LABS: EDSTREPNEGPOS1 Presumptive Negative
--- NOTE | 2024-02-28 08:46 | ED.URI ---
HPI - URI/Sore Throat General Chief Complaint: Upper Respiratory Infection Stated Complaint: chest pain right side/back,[place] Time Seen by Provider: 02/28/24 08:34 Source: patient and RN notes reviewed Mode of arrival: ambulatory Limitations: no limitations History of Present Illness HPI Narrative: Patient presents today complaining of 1+ week history of pain in the right mid back with deep breath, headache that causes some nausea, with 5 day history of sore throat. Patient also reports fever up to 100.3 2 days ago. Denies cough or shortness of breath. She has tried Tylenol, ibuprofen, heating pad, and her asthma inhaler. States her grandmother was diagnosed with COVID a few weeks ago and she did have some exposure. Related Data Home Medications Medication Instructions Recorded Confirmed albuterol sulfate 90 mcg/actuation 1 puff inhalation QID PRN 02/28/24 02/28/24 aerosol inhaler Shortness Of Breath Or Wheezing Allergies Allergy/AdvReac Type Severity Reaction Status Date / Time Penicillins Allergy Unknown Rash Verified 05/29/23 19:56 metoclopramide [From Reglan] AdvReac Hallucinati Verified 05/29/23 19:56 ng Review of Systems Review of Systems: CONSTITUTIONAL: Denies body aches, chills, or sweats.+ fever EYES: Denies visual changes, redness, or discharge. ENT: Denies rhinorrhea, congestion, or otalgia.+ sore throat CARDIOVASCULAR: Denies chest pain, palpitations, or edema. RESPIRATORY: Denies cough or dyspnea. GASTROINTESTINAL: Denies abdominal pain, nausea, vomiting, or diarrhea. GENITOURINARY: Denies dysuria or hematuria. SKIN: Denies rash, itching, or wounds. MUSCULOSKELETAL: Deniesjoint pain, or myalgia.+ back pain NEUROLOGIC: Denies numbness, tingling, or weakness.+ headache PSYCH: Denies depression or anxiety. [facility] Past Medical History Medical History Asthma Headache Migraine depression Surgical History Surgical History History of laparoscopic cholecystectomy Hx of appendectomy Family History Family History Mother Acute myocardial infarction Hypertension Asthma Sibling Diabetes mellitus Hypertension Asthma Social History Social History Social History: 5 children Smoking status: Never smoker Alcohol intake: never Substance use: never Substance use type: does not use Gender identity (if verbalized by the patient): Female Spiritual care concerns: No Comments At time of signature, I have reviewed and agree with nursing past medical, surgical, social and family history unless otherwise noted. Please see nursing chart for further information. There is no relevant family history pertinent to the presenting complaint Exam Narrative: GENERAL: Well-appearing, well-nourished, and in no acute distress. HEAD: Normocephalic, atraumatic. EYES: EOMI. No redness or drainage. Conjunctivae normal. ENT: Mucous membranes pink and moist. Nares clear. No rhinorrhea. TMs normal bilaterally. Throat normal. Uvula midline. NECK: Normal AROM. Supple. No lymphadenopathy. CHEST: No respiratory distress. Clear to auscultation. HEART: Regular rate and rhythm. No murmur appreciated. MUSCULOSKELETAL: No bony tenderness of the spine. Mild muscular tenderness of the right mid back. EXTREMITIES: Normal range of motion. No edema. SKIN: Warm, dry, no rash. Capillary refill normal. Normal skin turgor. NEURO: No focal deficits. Alert and oriented x3. Gait steady. PSYCH: Normal affect. No signs of depression or anxiety. Course Course Level of Care: Express Care Visit Vital Signs Vital signs: Vital Signs Temperature 97.2 F L 02/28/24 08:21 Pulse Rate 79 02/28/24 08:21 Respiratory Rate 16 02/28/24 08:21 Blood
== END 2024-02-28 09:10 | disposition home or self-care (01) ==
PROVIDERS: Emergency Provider Nurse Practitioner; PCP Emergency Medicine
DX: B34.9 Viral infection, unspecified (principal); J45.909 Unspecified asthma, uncomplicated
CPT/HCPCS: 71046; 87081; 87880; 99213; G0463

== ENCOUNTER 2024-04-22 23:28 | Emergency (ER) | payer OTHER, SELFPAY ==
--- NOTE | ~2024-04-22 | CT_ITS ---
EXAMINATION: CT abdomen pelvis w con DATE: 04/23/2024 08:40 INDICATION: Abdominal pain TECHNIQUE: Computed tomography (CT) of the abdomen and pelvis was performed with 100 cc Omnipaque 350 intravenous contrast. The dose-length product was 910.49 mGy-cm. Automated exposure control and iter ative reconstruction technique were employed. COMPARISON: CT dated 04/10/2020. FINDINGS: Lung bases are unremarkable. Heart size normal. Status post cholecystectomy. Fatty infiltra tion of the liver. The spleen, pancreas, adrenal glands and kidneys are unremarkable. There is a left adnexal cyst measuring 2.8 cm. There is mild endometrial thickening. Mild lumbar spondylosis. No neli e air or free fluid. Nonobstructive bowel gas pattern. There is mild atrophy of the right rectus musc les inferiorly. IMPRESSION: 1. Left adnexal cyst, likely ovarian, measuring 2.8 cm. 2: Fatty infiltration of the liver. Reviewed, dictated and finalized at location B.
[2024-04-22 23:33] VITALS: BP 138/89; PULSE 86; RESP 14; TEMP 36.4; O2SAT 99
[2024-04-23 02:24] VITALS: BP 142/100; PULSE 96; RESP 16; TEMP 36.5; O2SAT 99
[2024-04-23 05:46] LABS: Basophils Absolute Auto 0.1 K/mm3 (0.0-0.1); Basophils Percent Auto 0.7 % (0.2-1.2); Eosinophils Absolute Auto 0.3 K/mm3 (0-0.3); Eosinophils Percent Auto 4.1 % (0-4.4); Hematocrit 42.9 % (37.0-47.0); Hemoglobin 14.5 g/dL (12.0-15.0); Immature Granulocyte Absolute 0.02 K/mm3 (0.00-0.031); Immature Granulocyte Percent A 0.3 % (0-0.5); Lymphocytes Absolute Auto 3.09 K/mm3 (0.9-3.2); Lymphocytes Percent Auto 42.5 % (18.3-44.2); Mean Corpuscular HGB Conc 33.8 g/dl (32-36); Mean Corpuscular Hemoglobin 30.6 pg (26-34); Mean Corpuscular Volume 90.5 fl (80-100); Mean Platelet Volume 9.7 fl (7.4-10.4); Monocytes Absolute Auto 0.5 K/mm3 (0.1-0.6); Monocytes Percent Auto 6.9 % (2.6-8.5); Neutrophils Absolute Auto 3.3 K/mm3 (1.3-6.7); Neutrophils Percent Auto 45.5 % (45.5-73.1); Platelet Count Result 184 k/mm3 (150-375); Red Blood Count 4.74 M/mm3 (4.2-5.4); Red Cell Distribution Width 12.1 % (11.5-14.5); White Blood Count 7.3 K/mm3 (4.5-10.0)
[2024-04-23 05:58] LABS: Add Urine Microscopic? YES; Alanine Aminotransferase 114 U/L (6-35); Albumin Level 4.5 g/dL (3.5-5.1); Alkaline Phosphatase 78 U/L (38-126); Anion Gap 8 mmol/L (4-12); Appearance Urine Clear (Clear); Aspartate Amino Transferase 71 U/L (14-36); Bacteria Urine None Seen /hpf; Bilirubin Urine Negative (Negative); Bilirubin,Total 0.7 mg/dL (0.2-1.3); Blood Urea Nitrogen 13 mg/dL (7-17); Blood Urine Negative (Negative); Calcium 9.2 mg/dL (8.4-10.2); Carbon Dioxide 25 mmol/L (22-30); Chloride 107 mmol/L (98-107); Color Urine Yellow (Yellow); Estimated CRCL calculation 96 ml/min; Estimated Glomerular Filt Rate > 60; Glucose 92 mg/dL (65-110); Glucose Urine UA Negative (Negative); Ketones Urine Negative (Negative); Leukocyte Esterase Ur Trace LEU/UL (Negative); Lipase 93 U/L (23-300); Nitrate Urine Negative (Negative); Non Pathogenic Casts 0-2; Potassium 3.9 mmol/L (3.4-5.0); Protein Urine Negative (Negative); RBC Urine 0-2 /hpf (0-2); Sodium 140 mmol/L (137-145); Specific Grav Ur 1.024 (1.001-1.035); Squamous Epithelial Cell Urine Occasional /hpf (Few); Urobilinogen Urine 0.2 mg/dL (<2.0); pH Urine 5.5 (5.0-9.0)
--- NOTE | 2024-04-23 07:10 | ED.ABDPAIN ---
HPI - Abdominal Pain General Chief Complaint: Abdominal Pain Stated Complaint: Abd pain Time Seen by Provider: 04/23/24 07:10 Source: patient Mode of arrival: ambulatory History of Present Illness HPI narrative: 38 years old female complaining of abdominal pain for the last 2 days mainly on the left side, also complaining of urinary burning sensation and vaginal discharge. She denies any fever, chills, nausea, vomiting, constipation, diarrhea History of asthma. Related Data Home Medications Medication Instructions Recorded Confirmed albuterol sulfate 90 mcg/actuation 1 puff inhalation QID PRN 02/28/24 02/28/24 aerosol inhaler Shortness Of Breath Or Wheezing Allergies Allergy/AdvReac Type Severity Reaction Status Date / Time Penicillins Allergy Unknown Rash Verified 04/23/24 07:24 metoclopramide [From Reglan] AdvReac Hallucinati Verified 04/23/24 07:24 ng Review of Systems Review of Systems: All systems reviewed & are unremarkable except as noted in HPI and below PMFSH Past Medical History Medical History Asthma Headache Migraine depression Surgical History Surgical History History of laparoscopic cholecystectomy Hx of appendectomy Family History Family History Mother Acute myocardial infarction Hypertension Asthma Sibling Diabetes mellitus Hypertension Asthma Social History Social History Social History: 5 children Smoking status: Never smoker Alcohol intake: never Substance use: never Substance use type: does not use Gender identity (if verbalized by the patient): Female Spiritual care concerns: No Exam Narrative: General appearance: Well-developed, well-nourished Skin: Normal color Head: Normocephalic, nontraumatic Eyes: Clear conjunctiva ENT: Oropharynx normal, ears normal, nose normal Neck: Supple, nontender Chest and respiratory: Airway patent, no respiratory distress, no accessory muscle use Heart: Regular rate/rhythm Abdomen: Soft, slight diffuse tenderness mainly on the left lower abdomen, no organomegaly, quiet bowel sounds Pelvic exam showed no vaginal bleeding, thick yellowish discharge around the cervix, diffuse vaginal tenderness, Vascular: Normal peripheral pulses, normal capillary refill. Musculoskeletal: Normal range of motion, nontender back Neurologic: Alert and oriented ?3, MACHINE BOSS is normal as tested, no gross motor deficit Course Vital Signs Vital signs: Vital Signs Temperature 36.4 C 04/22/24 23:33 Pulse Rate 86 04/22/24 23:33 Respiratory Rate 14 04/22/24 23:33 Blood Pressure 138/89 04/22/24 23:33 Pulse Oximetry 99 04/22/24 23:33 Temperature 36.6 C 04/23/24 07:20 Pulse Rate 73 04/23/24 07:20 Respiratory Rate 19 04/23/24 07:20 Blood Pressure 113/69 04/23/24 07:20 Pulse Oximetry 100 04/23/24 07:20 MDM - Abdominal Pain MDM Narrative Medical decision making narrative: PATIENT CAME WITH ABDOMINAL PAIN LEFT LOWER QUADRANT, VAGINAL DISCHARGE, CONCERNING ABOUT THE POSSIBILITY OF UTERINE PROLAPSE. VITAL SIGNS ARE STABLE DIFFERENTIAL DIAGNOSIS INCLUDE DIVERTICULITIS, CONSTIPATION, URINARY TRACT INFECTION, KIDNEY STONE, OVARIAN CYST, STD. PATIENT IS TELLING ME THAT SHE IS SEXUALLY ACTIVE BUT SHE IS NOT SURE ABOUT HER SEXUAL PARTNER IF HE DOES SOMETHING OUT OF THE RELATIONSHIP OR NOT. HAD HISTORY OF STD BEFORE. PHYSICAL EXAMINATION SHOWED YELLOWISH VAGINAL DISCHARGE OTHERWISE INSIGNIFICANT ABNORMALITY BL
[2024-04-23 07:20] VITALS: BP 113/69; PULSE 73; RESP 19; TEMP 36.6; O2SAT 100
[2024-04-23] MEDS: SODIUM CHLORIDE 0.9% IV 1,000 ML 999 ML IV CONT (07:22)
[2024-04-23] MEDS: ONDANSETRON INJ 4 MG/2 ML VIAL 8 MG IV PUSH (07:48)
[2024-04-23] MEDS: MORPHINE SULFATE (*CRX) 4 MG/ML INJ IV PUSH (07:48)
[2024-04-23] MEDS: cefTRIAXone 1 GM VIAL 0.5 GM IM (08:45)
[2024-04-23 09:04] VITALS: BP 116/67; PULSE 65; RESP 14; O2SAT 97
[2024-04-23 09:22] LABS: Trichomonas Vag PCR NOT DETECTED (NOT DETECTE)
[2024-04-23 09:47] LABS: Chlamydia trachomatis NOT DETECTED (NOT DETECTE); Neisseria gonorrhoeae PCR NOT DETECTED (NOT DETECTE)
[2024-04-24 14:28] LABS: BEDSIDEPREGUCG Negative (Negative)
== END 2024-04-23 09:05 | disposition home or self-care (01) ==
PROVIDERS: Student in an Organized Health Care Education/Training Program; Emergency Provider Emergency Medicine; PCP Emergency Medicine
DX: N83.202 Unspecified ovarian cyst, left side (principal); N89.8 Other specified noninflammatory disorders of vagina; J45.909 Unspecified asthma, uncomplicated; Z90.49 Acquired absence of other specified parts of digestive tract; K76.0 Fatty (change of) liver, not elsewhere classified
CPT/HCPCS: 36415; 74177; 80053; 81001; 81025; 83690; 85025; 87086; 87088; 87491; 87591; 87661; 96361; 96372; 96374; 96375; 99284; J0696; J2270; J2405; J7030; Q9967

== ENCOUNTER 2024-05-05 11:10 | Emergency (ER) | payer OTHER, SELFPAY ==
[2024-05-05 11:19] VITALS: BP 116/86; PULSE 87; RESP 20; TEMP 37.1; O2SAT 98
--- NOTE | 2024-05-05 11:23 | ED.GENADULT ---
HPI - General Adult General Chief complaint: Upper Respiratory Infection Stated complaint: Bodyaches/Headache Time Seen by Provider: 05/05/24 11:23 Source: patient, RN notes reviewed and old records reviewed Mode of arrival: ambulatory Limitations: no limitations History of Present Illness HPI narrative: 38-year-old female presents to the [facility] with complaints of generalized body aches, headache 2 days. Patient reports she has had some nausea, 1 episode of diarrhea. Has taken Tylenol and ibuprofen. Denies any fevers, chest pain, abdominal pain Related Data Home Medications Medication Instructions Recorded Confirmed albuterol sulfate 90 mcg/actuation 1 puff inhalation QID PRN 02/28/24 05/05/24 aerosol inhaler Shortness Of Breath Or Wheezing Allergies Allergy/AdvReac Type Severity Reaction Status Date / Time Penicillins Allergy Unknown Rash Verified 05/05/24 11:23 metoclopramide [From Reglan] AdvReac Hallucinati Verified 05/05/24 11:23 ng Review of Systems Review of Systems: All systems reviewed & are unremarkable except as noted in HPI and below Constitutional: Constitutional: Reports as per HPI, Reports body ache(s), Denies fever(s) and Reports headache(s) Eyes: Eyes: Reports no additional eye complaints ENT: Reports system reviewed and no additional complaints, except as documented Cardiovascular: Cardiovascular: Reports no additional cardiovascular complaints, Denies chest pain and Denies dyspnea Respiratory: Respiratory: Reports no additional respiratory complaints, Denies chest congestion, Denies cough and Denies dyspnea Gastrointestinal: Gastrointestinal: Reports no additional gastrointestinal complaints, Denies abdominal pain, Denies nausea and Denies vomiting Musculoskeletal: Musculoskeletal: Reports no additional musculoskeletal complaints Integumentary/Breasts: Skin/Breast: Reports system reviewed and no additional complaints, except as docu Neurologic: Reports system reviewed and no additional complaints, except as documented Psychiatric: Psychiatric: Reports no additional psychiatric complaints Allergic/Immunologic: Allergic/Immunologic: Reports no additional allergic/immunologic complaints [facility] Past Medical History Medical History Asthma Headache Migraine depression Surgical History Surgical History History of laparoscopic cholecystectomy Hx of appendectomy Family History Family History Mother Acute myocardial infarction Hypertension Asthma Sibling Diabetes mellitus Hypertension Asthma Social History Social History Social History: 5 children Smoking status: Never smoker Alcohol intake: never Substance use: never Substance use type: does not use Gender identity (if verbalized by the patient): Female Spiritual care concerns: No Comments At the time of my signature, I reviewed and agree with the nursing past medical, surgical, social, and family history. There is no relevant family history pertinent to the patient complaint. Exam Const: General: cooperative, healthy appearing, comfortable, no acute distress, well developed, alert and well nourished Nutritional Appearance: well nourished Orientation/consciousness: patient oriented x3 Limitations: no limitations HENMT: Head: normal to inspection Ears: hearing grossly normal bilaterally, external ears normal, TM's normal bilaterally, EAC's normal, mastoids normal and no periauricular adenopathy Face/Nose/Sinus: Normal external nose present, normal facial exam and face symmetric Face and sinus: normal facial exam and face symmetric Mouth: Yes Normal oral and palatal mucosa present, Yes lip normal and Yes tongue normal Throat: posterior oropharynx normal, tonsils normal
[2024-05-05 12:00] LABS: EDCOVIDSCREEN Negative (Negative); EDINFLUASCREEN Negative (Negative); EDINFLUBSCREEN Negative (Negative)
== END 2024-05-05 12:10 | disposition home or self-care (01) ==
PROVIDERS: Emergency Provider Nurse Practitioner; PCP Emergency Medicine
DX: J06.9 Acute upper respiratory infection, unspecified (principal); Z20.822 Contact with and (suspected) exposure to COVID-19; J45.909 Unspecified asthma, uncomplicated
CPT/HCPCS: 87426; 87804; 99213; G0463

== ENCOUNTER 2024-08-29 08:45 | Emergency (ER) | payer OTHER, SELFPAY ==
[2024-08-29 08:54] VITALS: BP 121/72; PULSE 84; RESP 20; TEMP 37.3; O2SAT 98
--- NOTE | 2024-08-29 09:26 | ED_ITS ---
HPI - Extremity Injury (Upper) General Chief Complaint: Extremity Injury, Upper Stated Complaint: left wrist hurts Time Seen by Provider: 08/29/24 09:23 Source: patient and RN notes reviewed Mode of arrival: ambulatory Limitations: no limitations History of Present Illness HPI narrative: 39-year-old female who is 6 weeks presents with concern for left wrist pain. Reports yesterday she was pushing her grandmother in a wheelchair when she felt a pop in her wrist. She reports since then it has been painful at rest, worsening pain with movement and flexion of her fingers. 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 She reports she has been taking Tylenol, ibuprofen. MD complaint: injury to: left and wrist Related Data Allergies Allergy/AdvReac Type Severity Reaction Status Date / Time Penicillins Allergy Unknown Rash Verified 08/29/24 09:01 metoclopramide (From Reglan) AdvReac Hallucinati Verified 08/29/24 09:01 ng Review of Systems Review of Systems: CONSTITUTIONAL: Denies malaise, chills, sweats, or fever. CARDIOVASCULAR: Denies chest pain, palpitations, or edema. RESPIRATORY: Denies cough or dyspnea. SKIN: Denies rash or itching, bruising, redness, swelling. MUSCULOSKELETAL: Reports left wrist pain NEUROLOGIC: Denies numbness, weakness All systems reviewed & are unremarkable except as noted in HPI and below PMFSH Past Medical History Medical History Asthma Headache Migraine depression Surgical History Surgical History History of laparoscopic cholecystectomy Hx of appendectomy Family History Family History Mother Acute myocardial infarction Hypertension Asthma Sibling Diabetes mellitus Hypertension Asthma Social History Social History Social History: 5 children Smoking status: Never smoker Alcohol intake: never Substance use: never Substance use type: does not use Gender identity (if verbalized by the patient): Female Spiritual care concerns: No Comments At time of signature, agree with nursing past medical, surgical, social and fami ly history. There is no relevant family history pertinent to the presenting complaint Exam Narrative: GENERAL: Well-appearing, well-nourished, and in no acute distress. HEAD: Normocephalic, atraumatic. EYES: PERRLA, conjunctivae clear NECK: Supple. CHEST: Speaks in full sentences. No respiratory distress. HEART: Regular rate and rhythm. Normal and equal peripheral pulses. EXTREMITIES: Left wrist, hand, digits have grossly normal strength and sensation, normal range of motion. No edema or ecchymosis. 5/5 strength with digit flexion and extension. Normal sensation with sensitivity to light touch and pain. Lateral wrist tenderness. No open wounds, no skin tenting, no devitalized tissue or atrophy, no trophic changes, no obvious deformity, alignment normal, nearby joints and structures intact. Distal pulses palpable and equal bilaterally, skin warm, dry, pink. Capillary refill less than 3 sec onds. SKIN: Warm, dry, no rash. NEURO: Alert and oriented x3. PSYCH: Normal mood and affect Course Course Emergency Course: Discussed risks and benefits of an x-ray for this patient's pain while . At this time it is felt that an x-ray should not be done and conservative treatment should be done for the next week. Patient reports she will follow up with her doctor if her pain persists or changes in any way. Patient is aware of diagnosis, understands and agrees to treatment plan. Anticipatory guidance given. Patient agrees to follow-up as directed and is aware of reasons to seek care at the emergency department. Portions of this record may have been created with voice recognition software Level of Care: Express Care Visit Vital Signs Vital signs: Vital Signs Temperature 99.1 F 08/29/24 08:54 Pulse Rate 84 08/29/24 08:54 Respiratory Rate 20 08/29/24 08:54 Blood Pressure 121/72 08/29/24 08:54 Pulse Oximetry 98 08/29/24 08:54 Oxygen Delivery Room Air 08/29/24 08:54 Temperature 99.1 F 08/29/24 08:54 Pulse Rate 84 08/29/24 08:54 Respiratory Rate 20 08/29/24 08:54 Blood Pressure 121/72 08/29/24 08:54 Pulse Oximetry 98 08/29/24 08:54 Oxygen Delivery Room Air 08/29/24 08:54 Reviewed. MDM - Extremity Injury (Upper) MDM Narrative Medical decision making narrative: Patients injury and pain is consistent with musculoskeletal etiology. No signs of neurological or vascular compromise on exam. Compartments and tissues are soft without signs of compartment syndrome. Pain is felt appropriate for further evaluation on an outpatient basis. Critical Care Time Critical Care Time Critical Care Time: No Discharge Plan Discharge Clinical Impression: Sprain and strain of wrist Patient Disposition: Home, Self-Care Condition: Stable Instructions: Wrist Sprain (ED) Additional Instructions: Avoid activities that cause pain until the pain subsides. Ice to the area 20-30 minutes 4-6 times a day Elevate above heart Elastic wrap or orthopedic splint as directed for comfort for the next 5-7 days Tylenol for pain Follow up with your primary care provider if the condition is not improving within 1 week. If the condition worsens with numbness, tingling, decrease sensation with weakness seek treatment in the emergency room immediately. Patient Language: Panamanian Follow-up/Referrals: UNKNOWN,DOCTOR [Primary Care Provider] - Stand Alone Forms: Work/School Release IP Time of Disposition: 09:31
== END 2024-08-29 09:36 | disposition home or self-care (01) ==
PROVIDERS: Emergency Provider Nurse Practitioner
DX: O9A.211 Injury, poisoning and certain other consequences of external causes complicating pregnancy, first trimester (principal); Z3A.01 Less than 8 weeks gestation of pregnancy; S63.502A Unspecified sprain of left wrist, initial encounter; X50.0XXA Overexertion from strenuous movement or load, initial encounter; J45.909 Unspecified asthma, uncomplicated
CPT/HCPCS: 99212; G0463

== ENCOUNTER 2025-04-02 02:39 | Day surgery (SDC) | payer OTHER, SELFPAY ==
[2025-03-27 15:11] VITALS: BMI 33.7
--- NOTE | 2025-03-27 15:20 | PC.NURSE ---
Report to the Outpatient Waiting Room, entrance under the green pavilion located off [facility], at time _0700_ on date _[id number]_. Planned Procedure Time: _0900_.? Time changes happen often and if your time is changed the preop area will call you the afternoon before. - You and your visitor will be asked to self-screen and do not enter if you have any COVID symptoms. Please call surgeon if you need to reschedule. - A mask is optional within the hospital at this time. Patients may have clear liquids (water, carbonated beverages, clear teas, apple juice) until 3 hours prior to surgery with a maximum of 20 ounces. - No food from midnight until time of surgery and no smoking, or chewing tobacco (or any form of nicotine). No chewing gum, candy or mints. Take only the following medications with a SIP of water on the morning of surgery: __None____ DO NOT STOP ANY OF YOUR OTHER PRESCRIPTION MEDICATIONS PRIOR TO SURGERY EXCEPT THE FOLLOWING Hold all vitamins and supplements for 3 days per anesthesiologist. Medications to discontinue per physician Date to take last dose Please no make-up, nail tunisian, hairspray, perfume, deodorant, or body powder the day of surgery.? No jewelry (including any body piercings) or valuables the day of surgery, leave them at home.? Please take a shower or bath the night before, or the morning of, surgery with an antibacterial soap.? Wear comfortable, loose fitting clothing.? - Jewelry must be removed prior to entering the operating room.? Rings and piercings that are not removed may be cut off. - The hospital will not accept responsibility for valuables.? - Please leave all valuables, including medications, at home the day of surgery. If you are going home after surgery, a licensed pile driver engineer must drive you home.? - NO public transportation without another adult if you receive anesthesia. - We recommend that an adult stay with you for 24 hours following discharge. - We also recommend that you do not drive, make important decision, drink alcoholic beverages, or take any drugs that were not prescribed by your health care provider for at least 24 hours after your discharge time. Follow any additional instructions given to you from your surgeon. Telephone instructions given to __Ana___and asked if any additional questions and then verbalized understanding. Patient advised to call surgeon office or pre surgery nurse liaison [phone] if any additional questions.
[2025-04-02] VITALS (12 sets, daily range): BP systolic 108–164; BP diastolic 62–94; PULSE 48–76; RESP 12–20; TEMP 36.2–36.7; O2SAT 94–100
--- OUTSIDE RECORDS SUMMARY | 2025-04-02 02:40 | XMS_ITS | Clinical Summary ---
Author Organization [facility] Address [address] [place] [address] Care Team Providers Care Collection Systems Foreman Name Role Phone Ankit Godoy MD Primary Care Provider [phone] Source Comments [facility],non-owned Affiliates and Associated Physician Practices is amultiple site organization consisting of ambulatory clinics and hospital sitesin [place], [place], [place] and [place]. This disclosure is being madepursuant to the Care Everywhere program and may not contain all information available regarding this patient. Last updated 18.[facility] Allergies Active Allergy Reactions Criticality Noted Date Comments Penicillins 09/18/2013 Medications * This document contains information received from the source organization and may not represent a complete record from that organization. * Be aware that medications may not be up to date on this document. Alwaysverify current medications with the patient. Vit-Fe Fumarate-FA ( VITAMIN PO) Take 1 tablet by mouth once daily Active ferrous sulfate 325 (65 FE) MG tablet Take 325 mg by mouth once daily Active Riboflavin 400 MG Take 1 tablet by mouth once daily 30 tablet 3 04/27/2018 Active fluticasone-salm eterol (ADVAIR) 100-50 MCG/DOSE inhalerIndicatio ns:Asthma Inhale 1 puff by mouth 2 times daily Reasons: Asthma 1 Inhaler 3 04/27/2018 Active ARIPiprazole (Abilify) 5 MG tablet Take 1 (one) tablet by mouth once daily 30 tablet 08/11/2022 Active cloNIDine (Catapres) 0.1 MG tablet Take 1 (one) tablet by mouth 2 times daily as needed (anxiety) 60 tablet 08/11/2022 Active Active Problems Problem Noted Date Diagnosed Date Asthma affecting in third trimester Hx of migraine during 03/02/2018 Overview (04/27/2018): Plan: Riboflavin for headache prevention Antibody E isoimmunization affecting , antepartum 02/25/2018 Overview (04/27/2018): << lab cannot exclude the concurrent presence of anti-c antibody>> Titers : 12/27/2017 <2 01/27/2018= 4 03/01/2018= <1:2 04/01/2018= <2 Plan: Paternal red blood cell antigen testing for E and c. Serial antibody titer every month If a titer >/= to 1:32 then serial MCA Doppler every 1-2 weeks Supervision of high-risk of latrice guerrero igravida 02/25/2018 Overview (02/25/2018): 9 wk 4 day Dating U/S c/w LMP O+/antibody pos/Rub NI/-/-/- Rubella non-immune status, antepartum 02/25/2018 Overview (04/27/2018): Plan: rubella vaccination Resolved Problems Problem Noted Date Diagnosed Date Resolved Date abnormality affecting management of mother, antepartum condition or complication 09/18/2013 04/27/2018 Overview (04/25/2015): Family History Medical History Relation Name Comments Diabetes - Type 2 Brother Hypertension Brother CAD (Coronary Artery Disease) Maternal Grandmother CAD (Coronary Artery Disease) Mother Cancer - Other Mother cervical Hypertension Mother Relation Name Status Comments Brother Maternal Grandmother Mother Social History Tobacco Use Types Packs/Day Years Used Date Smoking Tobacco: Former Cigarettes Smokeless Tobacco: Never Tobacco Cessation:Counseling Given: Not Answered Alcohol Use Standard Drinks/Week Comments No 0 (1 standard drink = 0.6 oz pur e alcohol) Comments No Sex and Gender Information Value Date Recorded Sex Assigned at Not on file Legal Sex Female 6:08 AM CONTACT LENS TECHNICIAN Gender Identity Not on file Sexual Orientation Not on file Last Filed Vital Signs Vital Sign Reading Time Taken Comments Blood Pressure 119/78 08/11/2022 11:59 AM CONTACT LENS TECHNICIAN Pulse 87 08/11/2022 11:59 AM CONTACT LENS TECHNICIAN Temperature - - Respiratory Rate 17 08/11/2022 11:5 9 AM CONTACT LENS TECHNICIAN Oxygen Saturation 100% 08/11/2022 11: 59 AM CONTACT LENS TECHNICIAN Inhaled Oxygen Concentration - - Weight 88.8 kg (195 lb 12.8 oz) 023 11:59 AM CONTACT LENS TECHNICIAN Height 165.1 cm (5' 5) 08/11/2022 11:5 9 AM CONTACT LENS TECHNICIAN Body Mass Index 32.58 08/11/2022 11:59 AM CONTACT LENS TECHNICIAN Plan of Treatment Health Maintenance Due Date Last Done Comments HEPATITIS C SCREENING 05/20/2005 DTAP/TDAP/TD VACCINES (1 - Tdap) 2006 HEPATITIS B VACCINE (1 of 3 - 19+ 3-dose series) 2006 PNEUMOCOCCAL VACCINE (1 of 2 - PCV) 2006 HPV VACCINE (1 - 3-dose SCDM series) 2014 DEPRESSION SCREENING 07/26/2024 COVID-19 VACCINE (1 - 2023-2 5 season) 2025 INFLUENZA VACCINE (#1) 2025 PAP SMEAR 08/03/2025 08/03/2022, 08/03/2022 ZOSTER VACCINE (1 of 2) 2037 HIV SCREENING Completed 08/03/2022 HIB VACCINE Aged Out No longer eligi ble based on patient's age to complete this topic MENINGOCOCCAL (Group B) VACCINE SHARED DECISION-MAKING Aged Out No longer eligible based on patient's age to complete this topic MENINGOCOCCAL GROUPS A/C/Y/W VACCINE Aged Out No longer eligible b ased on patient's age to complete this topic Care Teams Collection Systems Foreman Relationship Specialty Start Date End Date Ankit Godoy MD [address] [place] [address] PCP - General 08/06/22
--- NOTE | 2025-04-02 06:43 | P.PNAN_ITS ---
Anes - Initial Pre Proc Eval Procedure: Operation Date: 04/02/25 07:30 Proposed Procedures p Diagnostic Laparoscopy with Left Ovarian Cystectomy - Talon Lane MD Date/Time: 04/02/25 06:43 Surgeon: Talon Lane MD Pre Op Diagnosis: Left Ovarian Cyst Patient Data Age: 39 Gender: F Height: 1.6 m Weight: 86.4 kg Allergies Allergy/AdvReac Type Severity Reaction Status Date / Time Penicillins Allergy Unknown Rash Verified 04/02/25 08:02 metoclopramide (From Reglan) AdvReac Hallucinati Verified 04/02/25 08:02 ng Home Medications ?Medication ?Instructions ?Recorded ?Confirmed ?Type No Home Medications 03/27/25 03/27/25 H istory Patient hx anesthesia problems: none Family hx anesthesia problems: none Results Review: All pre-operative results and documents have been reviewed as part of the pre- operative evaluation. [facility] Past Medical History Medical History (Updated 04/02/25 @ 07:[address] MD) Cyst of left ovary Anxiety Headache Migraine depression Asthma Surgical History Surgical History History of laparoscopic cholecystectomy Hx of appendectomy Family History Family History Mother Acute myocardial infarction Hypertension Asthma Sibling Diabetes mellitus Hypertension Asthma Social History Social History Social History: 5 children Years smoked: 5 Smoking status: Former smoker Tobacco type: cigarettes Smoking end date: 03/27/22 Alcohol intake: never Substance use: never Substance use type: does not use Living arrangements: with family Gender identity (if verbalized by the patient): Female Spiritual care concerns: No Anes - Eval Final PreProcedure Day of Procedure 04/02/25 06:43 Patient weight: obese Heart: regular rate and rhythm Lungs: clear to auscultation Airway: Mallampati scale class II Neurological: alert and oriented Last oral intake: >/= 8 hours ASA classification: II Emergent: no Anesthetic plan: proceed Anesthesia type and monitoring: general ETT and standard monitoring Results Review: All pre-operative results and documents have been reviewed as part of the pre- operative evaluation. Informed Consent: The patient's anesthetic plan and its attendant risks and benefits were discussed with the patient/family/POA. Questions were solicited and answers provided to the satisfaction of the patient/family/POA.
[2025-04-02] MEDS: ACETAMINOPHEN 500 MG TABLET 1000 MG PO (07:12)
[2025-04-02] MEDS: LACTATED RINGERS 1,000 ML 30 ML IV CONT ×2 (07:15→09:12)
[2025-04-02] MEDS: KETOROLAC 15 MG/ML VIAL (*BKC) IV PUSH (07:16)
--- NOTE | 2025-04-02 07:21 | P.HP_ITS ---
H&P: HPI History of Present Illness Date/Time: 04/02/25 07:21 Chief Complaint: pelvic pain, ovarian cyst Narrative: Patient is a 39 year old female who presents for laparoscopic ovarian cystectomy and diagnostic laparoscopy. She has a history of left sided pelvic pain that has not resolved over the past year. Pelvic US demonstrated 3cm exophytic vs paratubal cyst on the left ovary. Risks, benefits, and alternatives discussed with the patient who voices understanding and would like to proceed with laparoscopy and left ovarian cystectomy. Review of Systems 2 Review of Systems: All systems reviewed & are unremarkable except as noted in HPI and below PMFSH Past Medical History Medical History (Updated 04/02/25 @ 07:[address] MD) Cyst of left ovary Anxiety Headache Migraine depression Asthma Surgical History Surgical History History of laparoscopic cholecystectomy Hx of appendectomy Family History Family History Mother Acute myocardial infarction Hypertension Asthma Sibling Diabetes mellitus Hypertension Asthma Social History Social History Social History: 5 children Years smoked: 5 Smoking status: Former smoker Tobacco type: cigarettes Smoking end date: 03/27/22 Alcohol intake: never Substance use: never Substance use type: does not use Living arrangements: with family Gender identity (if verbalized by the patient): Female Spiritual care concerns: No Meds Home Medications and Allergies Home Medications ?Medication ?Instructions ?Recorded ?Confirmed ?Type No Home Medications 03/27/25 03/27/25 H istory Allergies Allergy/AdvReac Type Severity Reaction Status Date / Time Penicillins Allergy Unknown Rash Verified 03/27/25 15:11 metoclopramide (From Reglan) AdvReac Hallucinati Verified 03/27/25 15:11 ng Exam Const: General: comfortable and no acute distress Eyes: General: appearance normal, both eyes and all related structures Resp: Effort & Inspection: normal respiratory effort Cardio: Rate: regular rate Psych: Mental Status: mental status grossly normal Assessment and Plan Assessment and plan (1) Cyst of left ovary: Code(s): N83.202 - Unspecified ovarian cyst, left side Status: Inactive Assessment and Plan: - 3cm exophytic vs paratubal cyst found on pelvic US on left ovary - risks and benefits of ovarian cystectomy discussed with patient who voices understanding - will proceed with left ovarian cystectomy
--- NOTE | 2025-04-02 07:26 | WPDHPUPDATE1 ---
History and Physical Update Update Date/Time: 04/02/25 07:26 History and Physical has been reviewed, including an updated exam of the patient. There are NO changes in the patient's condition. Risks, benefits, and alternatives have been discussed and questions answered. Patient agrees to proceed with procedure.
[2025-04-02 08:07] LABS: BEDSIDEPREGUCG Negative (Negative)
--- NOTE | 2025-04-02 08:27 | S_PTH ---
PATIENT: Diana Hermosillo LOC: [facility] U#:[id number] AGE/SX: 39/F ROOM: RE04/02/[address]: Talon Lane MD : [id number] BED: DIS: 04/02/2025 SPEC #: [id number] RECD: 04/02/25 08:58 STATUS: GAIL REAzalea #: [id number] ELIAS: 04/02/25 08:[address]: Talon Lane DEPT: [facility] Surgical RECD BY: Dex Lala ENTERED: 04/02/25 08:59 SP TYPE: Surgical OTHR DR: LEGAL RECOVERY SPECIALIST PHYSICIAN Tissues: A - Cyst Procedures: Hematoxylin and Eosin Stain Gross and Microscopic Level 4
--- NOTE | 2025-04-02 08:35 | W.PM.PROC2 ---
Procedure Note - Detailed Date of Procedure 04/02/25 Pre-op Diagnosis Left Ovarian Cyst Post-op Diagnosis Same Procedure Performed diagnostic laparoscopy and left ovarian cystectomy Surgeon Talon Lane MD Anesthesia General Indications chronic left sided pelvic pain Findings normal appearing uterus; filmy adhesions from right ovary to right ovarian sidewall; 3cm left paratubal ovarian cyst; normal appearing left ovary Description of Procedure The patient was taken to the operating room with IVFs running. She was placed into the dorsal supine position where she received general endotracheal anesthesia without difficulty. The patient was then placed in a dorsal lithotomy position, using Melchor stirrups. Exam under anesthesia revealed the above findings. Patient was then prepped and draped in the normal sterile fashion. A time-out procedure was performed and the OR team agreed on the patient and procedure. An in and out catheter was inserted under sterile technique, draining clear urine. A bivalve speculum was inserted into the vagina. The anterior lip of the cervix was grasped with a single tooth tenaculum. An acorn uterine manipulator was then inserted into the cervix. The speculum was then removed. Gloves were then changed. Attention was turned to the patient's abdomen where Kingsley's point was incised with a scalpel, making a 5 mm horizontal incision. While tenting the patient's abdomen a 5 mm bladeless trocar was inserted into the peritoneal cavity under direct vision. Placement was confirmed by opening pressure of 4mmHg. Underlying organs were inspected and found to be free of injury. The patient's pelvis was examined and the above listed findings noted. A 5 mm infraumbilical skin incision was then made. A 5 mm bladeless trocar was then inserted into the peritoneal cavity under direct visualization. At this time, a 5 mm horizontal skin incision was made with the scalpel in the left lower quadrant. A 5 mm bladeless trocar was then inserted into the peritoneal cavity under direct visualization. The abdomen was then inspected. Findings noted as above. Using a blunt grasper and the [place] Ligasure device, the left paratubal cyst was excised from the left adnexa. It drained clear fluid and was removed and sent to pathology. The filmy adhesions of the right ovary were dissected until the free end of the right fallopian tube was visualized. Hemostasis was assured. The secondary trocars were then removed from the patient's abdomen. The pneumoperitoneum was expelled and the umbilical trocar removed. The skin incisions were then reapproximated with 4-0 Biosyn in a subcuticular fashion. Indermil was then placed over the incisions. Attention was then turned to the patient's vagina. The acorn uterine manipulator and tenaculum were then removed. A bivalve speculum was inserted into the patient's vagina. The cervix was found to be hemostatic. The speculum was removed. The patient tolerated the procedure well. Sponge, lap, needle, and instrument counts were correct X2. The patient was taken out of the dorsal lithotomy position and was awakened from anesthesia and taken to the recovery room in stable condition. Estimated Blood Loss 5 Urine Output 100 Pathology Yes Complications No immediate complications Condition Stable
[2025-04-02] MEDS: fentaNYL CITRATE INJ (*CRX) 100 MCG/2 ML VIAL 25 MCG IV PUSH ×4 (09:18→09:37)
[2025-04-02] MEDS: oxyCODONE HCL (*CRX) 5 MG TAB IR PO (10:12)
== END 2025-04-02 11:25 | disposition home or self-care (01) ==
PROVIDERS: Visit Provider Obstetrics & Gynecology
PROC: (CPT 49320; principal; 2025-04-02 07:30)
DX: N83.202 Unspecified ovarian cyst, left side (principal); N73.6 Female pelvic peritoneal adhesions (postinfective); Z87.891 Personal history of nicotine dependence; E66.9 Obesity, unspecified; Z68.33 Body mass index [BMI] 33.0-33.9, adult
CPT/HCPCS: 58662; 88305; A9270; J1100; J1200; J1885; J2003; J2004; J2250; J2405; J2704; J3010; J7030; J7120

== ENCOUNTER 2025-06-09 10:37 | Emergency (ER) | payer OTHER, SELFPAY ==
[2025-06-09 10:44] VITALS: BP 131/85; PULSE 80; RESP 18; TEMP 37.3; O2SAT 100
[2025-06-09 10:55] LABS: EDSTREPNEGPOS1 Negative (Negative)
--- NOTE | 2025-06-09 11:07 | ED.URI ---
HPI - URI/Sore Throat General Chief Complaint: Upper Respiratory Infection Stated Complaint: abdomen pain/headache Patient presents to the [facility] with complaints of fatigue, headaches, cough, sore throat, left ear pain, chest congestion, nasal congestion, abdominal cramping, loose stools, and chills that began about 2 days ago. Patient noted several people in her workplace have similar symptoms and her grandmother was ill with either fluid or COVID patient could not remember in the last week. Patient reports using ibuprofen and resting with minimal relief of symptoms noted she feels worse today. Denies known fever, shortness of breath, wheezing, vomiting, or dizziness. Related Data Allergies Allergy/AdvReac Type Severity Reaction Status Date / Time Penicillins Allergy Unknown Rash Verified 06/09/25 10:41 metoclopramide (From Reglan) AdvReac Hallucinati Verified 06/09/25 10:41 ng Review of Systems Constitutional: Constitutional: Reports as per HPI, Reports chills, Reports fatigue, Denies fever(s) and Denies weakness Eyes: Eyes: Reports no additional eye complaints ENT: Reports as per HPI, Denies vertigo, Denies dizziness, Reports nasal congestion and Reports sore throat Cardiovascular: Cardiovascular: Reports no additional cardiovascular complaints Respiratory: Respiratory: Reports as per HPI, Reports chest congestion, Reports cough, Denies dyspnea and Denies wheezing Gastrointestinal: Gastrointestinal: Reports no additional gastrointestinal complaints Genitourinary: Genitourinary: Reports no additional female genitourinary complaints Musculoskeletal: Musculoskeletal: Reports as per HPI Integumentary/Breasts: Skin/Breast: Reports as per HPI, Denies pruritus, Denies erythema and Denies rash Neurologic: Reports as per HPI, Denies vertigo, Denies dizziness, Reports headache(s) and Denies weakness Psychiatric: Psychiatric: Reports no additional psychiatric complaints Endocrine: Endocrine: Reports no additional endocrine complaints Hematologic/Lymphatic: Hematologic/Lymphatic: Reports no additional hematologic/lymphatic complaints Allergic/Immunologic: Allergic/Immunologic: Reports no additional allergic/immunologic complaints [facility] Past Medical History Medical History (Updated 06/09/25 @ 11:08 by Tonya Baltazar APRN, DIRECTOR [employer]IC PUBL[employer]ER [employer]ES[employer]) Cyst of left ovary Anxiety Headache Migraine depression Asthma Surgical History Surgical History History of laparoscopic cholecystectomy Hx of appendectomy Family History Family History Mother Acute myocardial infarction Hypertension Asthma Sibling Diabetes mellitus Hypertension Asthma Social History Social History Social History: 5 children Years smoked: 5 Smoking status: Former smoker Tobacco type: cigarettes Smoking end date: 03/27/22 Alcohol intake: never Substance use: never Substance use type: does not use Living arrangements: with family Gender identity (if verbalized by the patient): Female Spiritual care concerns: No Exam Const: General: healthy appearing and no acute distress Nutritional Appearance: well nourished Orientation/consciousness: patient oriented x3 Limitations: no limitations HENMT: Head: normal to inspection Ears: external ears normal and TM's normal bilaterally Face/Nose/Sinus: Normal external nose present, nares abnormal ( Mild erythema bilaterally no edema) and Nasal discharge present Face and sinus: normal facial exam and sinuses nontender Mouth: Yes Normal oral and palatal mucosa present, Yes lip normal and Yes moist mucous membranes Throat: posterior oropharynx abnormal ( mild erythema and edema no exudate noted) Resp: Effort & Inspection: normal respiratory effort Auscultation: clear to auscultation bilaterally Cardio: Rate: regular rate Rhythm: regular rhythm GI: GI Palp: Yes Soft to palpation, No Tenderness to palpation present (GI), No Guarding due to palpation present (GI), No Rigid due to palpation and No Hernia present Auscultation: normal bowel sounds Skin: General skin exam: normal color Rashes: no rashes Wounds: no wounds Neuro: General: patient oriented x3 Speech: normal speech Gait exam (Neuro): Normal gait present Psych: Mental Status: mental status grossly normal Affect: normal affect Attitude: cooperative Course Course Level of Care: Express Care Visit Vital Signs Vital signs: Vital Signs Temperature 99.2 F 06/09/25 10:44 Pulse Rate 80 06/09/25 10:44 Respiratory Rate 18 06/09/25 10:44 Blood Pressure 131/85 06/09/25 10:44 Pulse Oximetry 100 06/09/25 10:44 Oxygen Delivery Room Air 06/09/25 10:44 Temperature 99.2 F 06/09/25 10:44 Pulse Rate 80 06/09/25 10:44 Respiratory Rate 18 06/09/25 10:44 Blood Pressure 131/85 06/09/25 10:44 Pulse Oximetry 100 06/09/25 10:44 Oxygen Delivery Room Air 06/09/25 10:44 MDM - URI/Sore Throat MDM Narrative Medical decision making narrative: COVID, flu, strep negative. Likely viral in nature. The patient was evaluated by myself in the [facility] care. History is obtained from patient who is an independent historian and physical exam was performed. Available medical records were reviewed at this time. Exam findings show no acute concerns or changes; patient is non-toxic appearing and is in no distress. Patient is appropriate for outpatient treatment and follow-up. I have evaluated and discussed social determinants of health with the patient that could potentially impact subsequent diagnosis and treatment plans. Differential diagnosis and treatment plan were discussed with the patient. Patient agrees with discussion and after shared medical decision making agrees with plan of care. All questions were answered to the patient's satisfaction. Differential Diagnosis Differential diagnosis: Likely upper respiratory infection, croup, otitis media, sinusitis, viral infection, bronchitis, influenza and pharyngitis Medical Records Attestation: I reviewed the patient's medical records. Lab Data Attestation: I reviewed the patient's lab results. Labs: Lab Results 06/09/25 Range/Units 10:43 POC Grp A Strep Screen Negative (Negative) Discharge Plan Discharge Clinical Impression: Upper respiratory infection Patient Disposition: Home Condition: Stable Instructions: Antibiotic Form, Upper Respiratory Infection (ED), Cold Symptoms (ED) Additional Instructions: Viral illness may last between 7-12days; antibiotic is NOT recommended at this time. Recommend antihistamine such as Benadryl at night time and Claritin/Zyrtec/Selene during the day. Also using steroid nasal spray like Flonase can help with symptoms and congestion. Using sudafed for significant congestion will also give some relief. Cough syrup may cause drowsiness; avoid driving or take it at night time. Use inhaler as needed for cough, wheezing, shortness of breath or chest tightness. Also, recommend symptomatic treatment includes: rest, fluids, increase humidity of the air at home. Recommend Acetaminophen or nonsteroidal anti-inflammatory agents(NSAIDs) as directed in the bottle to reduce fever and/pain/headache. Avoid smoking/second-hand smoke. Limit visits to areas with large crowds. Frequent hand washing or hand national sales consultant is one of the best ways to prevent spread of infection. Please schedule a followup visit with your personal physician for further evaluation and treatment within 3-5days. Including recheck and discussion of your blood pressure. If your symptoms persist, change or worsen significantly before you can contact your personal physician then please, without delay, go to the emergency department for further evaluation. Patient Language: Greek Prescriptions: New benzonatate 200 mg capsule 200 mg PO TID PRN (Reason: cough) Qty: 30 0RF codeine-guaifenesin [Guaifenesin AC] 10-100 mg/5 mL liquid 5 ml PO Q6H PRN (Reason: cough) Qty: 120 0RF Follow-up/Referrals: PHYSICIAN,COSMETOLOGY EDUCATOR [Primary Care Provider, Internal Medicine] Stand Alone Forms: Work/School Release IP Time of Disposition: 11:11
[2025-06-09 11:12] LABS: EDCOVIDSCREEN Negative (Negative); EDINFLUASCREEN Negative (Negative); EDINFLUBSCREEN Negative (Negative)
== END 2025-06-09 11:15 | disposition home or self-care (01) ==
PROVIDERS: Emergency Provider Nurse Practitioner Family
DX: J06.9 Acute upper respiratory infection, unspecified (principal); Z87.891 Personal history of nicotine dependence; Z20.822 Contact with and (suspected) exposure to COVID-19
CPT/HCPCS: 87081; 87426; 87804; 87880; 99213; G0463